=== PATIENT | female | born 1995 | race Hispanic/Latino ===

== ENCOUNTER 2018-04-22 13:32 | Emergency (ER) | payer SELFPAY ==
--- NOTE | 2018-04-22 15:00 | RAD REPORT ---
EXAM DESCRIPTION: RAD - Chest Pa And Lat (2 Views) - 04/22/2018 2:55 pm CLINICAL HISTORY: COUGH Chest pain. COMPARISON: No comparisons FINDINGS: The lungs are clear. The heart is normal in size. No displaced fractures. IMPRESSION: No acute or concerning finding suspected.
--- NOTE | 2018-04-22 15:21 | ER ---
Nurse's Notes [facility] Name: Donal Spring Age: 22 yrs Sex: Female : 1995 Arrival Date: 04/22/2018 Time: 13:36 Bed 27 Private MD: None, None Diagnosis: Acute bronchitis Presentation: 04/22 13:38 Presenting complaint: Patient states: "I just have a really bad cough that has been ss going on for three weeks now and it just hasn't stopped." Denies fever. Pt also c/o sore throat that is worse when swallowing. Transition of care: patient was not received from another setting of care. Onset of symptoms was March 2018. Risk Assessment: Do you want to hurt yourself or someone else? Patient reports no desire to harm self or others. Initial Sepsis Screen: Does the patient meet any 2 criteria? No. Patient's initial sepsis screen is negative. Does the patient have a suspected source of infection? No. Patient's initial sepsis screen is negative. Care prior to arrival: None. 13:38 Method Of Arrival: Ambulatory ss 13:38 Acuity: MAXIMILIANO 4 ss Triage Assessment: 14:00 General: Appears in no apparent distress. comfortable, Behavior is calm, cooperative, kr2 appropriate for age. 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 - Social history:: Smoking status: Patient uses tobacco products, smokes one-half pack cigarettes per day. - Ebola Screening: : Patient denies exposure to infectious person Patient denies travel to an Ebola-affected area in the 21 days before illness onset. Screenin:00 Abuse screen: Denies threats or abuse. Denies injuries from another. Nutritional kr2 screening: No deficits noted. Tuberculosis screening: No symptoms or risk factors identified. Fall Risk None identified. Assessment: 14:00 General: Appears in no apparent distress. comfortable, well groomed, well developed, kr2 well nourished, Behavior is calm, cooperative, appropriate for age. Pain: Complains of pain in throat Pain does not radiate. Pain currently is 9 out of 10 on a pain scale. Quality of pain is described as tender, Is intermittent, Aggravated by eating, drinking. Neuro: Level of Consciousness is awake, alert, obeys commands, Oriented to person, place, time, situation, Appropriate for age. Cardiovascular: Capillary refill < 3 seconds in bilateral fingers Patient's skin is warm and dry. Respiratory: Reports cough that is persistent Airway is patent Respiratory effort is even, unlabored, Respiratory pattern is regular, symmetrical, Breath sounds are clear bilaterally. GI: Abdomen is flat, non-distended, Bowel sounds present X 4 quads. Patient currently denies nausea, vomiting. EENT: Nares are clear bilaterally Oral mucosa is moist. Throat is pink. Derm: Skin is intact, is healthy with good turgor, Skin is pink, warm \\T\\ dry. Musculoskeletal: Circulation, motion, and sensation intact. 15:00 Reassessment: Patient appears in no apparent distress at this time. Patient and/or kr2 family updated on plan of care and expected duration. Pain level reassessed. Patient is alert, oriented x 3, equal unlabored respirations, skin warm/dry/pink. Vital Signs: 13:40 BP 138 / 96; Pulse 87; Resp 15; Temp 97.5(TE); Pulse Ox 100% on R/A; Weight 53.07 kg; ss Height 5 ft. 2 in. (157.48 cm); Pain 9/10; 15:00 BP 124 / 80; Pulse 80; Resp 16; Pulse Ox 100% ; kr2 13:40 Body Mass Index 21.40 (53.07 kg, 157.48 cm) ED Course: 13:36 Patient arrived in ED. ag5 13:37 None, None is Private Physician. ag5 13:39 Triage completed. ss 13:40 Arm band placed on right wrist. ss 13:54 Vijay Wynn MD is Attending Physician. gs 13:55 Patient has correct armband on for positive identification. Bed in low position. Call kr2 light in reach. Side rails up X 1. Adult w/ patient. Pulse ox on. NIBP on. Door closed. Warm blanket given. Head of bed elevated. 14:40 Patient moved to radiology via wheelchair. [facility] 14:54 X-ray completed. Patient tolerated procedure well. Patient moved back from radiology. mh1 14:56 XRAY Chest Pa And Lat (2 Views) In Process Unspecified. EDMS 15:30 No provider procedures requiring assistance completed. Patient did not have IV access kr2 during this emergency room visit. 15:32 Lyn Greer, RN is Primary Nurse. kr2 Administered Medications: No medications were administered Outcome: 15:20 Discharge ordered by . 15:30 Discharged to home ambulatory, with family. kr2 15:30 Condition: good 15:30 Discharge instructions given to patient, family, Instructed on discharge instructions, follow up and referral plans. medication usage, Demonstrated understanding of instructions, follow-up care, medications, Prescriptions given X 2. 15:32 Patient left the ED. kr2 Signatures: Dispatcher [employer] EDMS Dianna Chin 1 Jessie Álvarez RN RN Vijay Wynn MD MD Lyn Greer, BARRY RN kr2 Agatha Wheeler ag5 Corrections: (The following items were deleted from the chart) 13:39 13:38 Acuity: MAXIMILIANO 5 [facility] 13:41 13:38 Presenting complaint: Patient states: "I just have a really bad cough that has ss been going on for three weeks now and it just hasn't stopped." Denies fever. 22:15 22:14 LMP N/A - control method kr2 kr2
--- NOTE | 2018-04-22 15:21 | EDPHYS ---
Physician Documentation [facility] Name: Donal Spring Age: 22 yrs Sex: Female : 1995 Arrival Date: 04/22/2018 Time: 13:36 Bed 27 Private MD: None, None ED Physician Vijay Wynn HPI: 04/22 15:19 This 22 yrs old Female presents to ER via Ambulatory with complaints of Cough. gs 15:19 The patient or guardian reports cough, difficulty breathing. Onset: The gs symptoms/episode began/occurred 3 week(s) ago. Severity of symptoms: At their worst the symptoms were moderate, in the emergency department the symptoms have improved, moderately. Modifying factors: The symptoms are alleviated by nothing, the symptoms are aggravated by nothing. Associated signs and symptoms: Pertinent negatives: chest pain, fever, sore throat, vomiting. The patient has experienced similar episodes in the past, a few times. The patient has not recently seen a physician. 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 - Social history:: Smoking status: Patient uses tobacco products, smokes one-half pack cigarettes per day. - Ebola Screening: : Patient denies exposure to infectious person Patient denies travel to an Ebola-affected area in the 21 days before illness onset. ROS: 15:19 All other systems are negative. gs Exam: 15:19 Head/Face: Normocephalic, atraumatic. Eyes: Pupils equal round and reactive to light, gs extra-ocular motions intact. Lids and lashes normal. Conjunctiva and sclera are non-icteric and not injected. Cornea within normal limits. Periorbital areas with no swelling, redness, or edema. ENT: Nares patent. No nasal discharge, no septal abnormalities noted. Tympanic membranes are normal and external auditory canals are clear. Oropharynx with no redness, swelling, or masses, exudates, or evidence of obstruction, uvula midline. Mucous membranes moist. Neck: Trachea midline, no thyromegaly or masses palpated, and no cervical lymphadenopathy. Supple, full range of motion without nuchal rigidity, or vertebral point tenderness. No Meningismus. Chest/axilla: Normal chest wall appearance and motion. Nontender with no deformity. No lesions are appreciated. Cardiovascular: Regular rate and rhythm with a normal S1 and S2. No gallops, murmurs, or rubs. Normal PMI, no JVD. No pulse deficits. Respiratory: Lungs have equal breath sounds bilaterally, clear to auscultation and percussion. No rales, rhonchi or wheezes noted. No increased work of breathing, no retractions or nasal flaring. Abdomen/GI: Soft, non-tender, with normal bowel sounds. No distension or tympany. No guarding or rebound. No evidence of tenderness throughout. Back: No spinal tenderness. No costovertebral tenderness. Full range of motion. Skin: Warm, dry with normal turgor. Normal color with no rashes, no lesions, and no evidence of cellulitis. MS/ Extremity: Pulses equal, no cyanosis. Neurovascular intact. Full, normal range of motion. Neuro: Awake and alert, GCS 15, oriented to person, place, time, and situation. Cranial nerves II-XII grossly intact. Motor strength 5/5 in all extremities. Sensory grossly intact. Cerebellar exam normal. Normal gait. 15:19 Constitutional: The patient appears alert, awake. Vital Signs: 13:40 BP 138 / 96; Pulse 87; Resp 15; Temp 97.5(TE); Pulse Ox 100% on R/A; Weight 53.07 kg; ss Height 5 ft. 2 in. (157.48 cm); Pain 9/10; 15:00 BP 124 / 80; Pulse 80; Resp 16; Pulse Ox 100% ; kr2 13:40 Body Mass Index 21.40 (53.07 kg, 157.48 cm) ss MDM: 14:09 Patient medically screened. gs 15:19 Differential Diagnosis: Bronchitis Upper Respiratory Infection Pneumonia. Data gs reviewed: vital signs, nurses notes. Response to treatment: the patient's symptoms have markedly improved after treatment, and as a result, I will discharge patient. 15:21 Counseling: I had a detailed discussion with the patient and/or guardian regarding: the gs historical points, exam findings, and any diagnostic results supporting the discharge/admit diagnosis, the presence of at least one elevated blood pressure reading (>120/80) during this emergency department visit, radiology results. Special discussion: I have referred the patient to see his PCP for further evaluation of high blood pressure. 04/22 14:09 Order name: XRAY Chest Pa And Lat (2 Views); Complete Time: 15:19 Administered Medications: No medications were administered Disposition: 04/22/18 15:20 Discharged to Home. Impression: Acute bronchitis. - Condition is Stable. - Discharge Instructions: Acute Bronchitis, Adult, Managing Your Hypertension. - Prescriptions for Zyrtec 10 mg Oral Tablet - take 1 tablet by ORAL route once daily As needed; 20 tablet. Albuterol Sulfate 90 mcg/actuation - inhale 1-2 puff by INHALATION route every 4-6 hours; 1 Inhaler. - Medication Reconciliation Form, Thank You Letter, Antibiotic Education, Prescription Opioid Use form. - Follow up: Private Physician; When: 2 - 3 days; Reason: Re-evaluation by your physician. Signatures: Dispatcher [employer] EDWV Jessie Álvarez RN RN ss Vijay Wynn MD MD Lyn Greer RN RN kr2 Corrections: (The following items were deleted from the chart) 15:32 15:20 04/22/2018 15:20 Discharged to Home. Impression: Acute bronchitis. Condition is kr2 Stable. Forms are Medication Reconciliation Form, Thank You Letter, Antibiotic Education, Prescription Opioid Use. Follow up: Private Physician; When: 2 - 3 days; Reason: Re-evaluation by your physician.
== END 2018-04-22 15:32 | disposition home or self-care (01) ==
LOC: ER 13:32
DX: J20.9 Acute bronchitis, unspecified (principal); F17.210 Nicotine dependence, cigarettes, uncomplicated
CPT/HCPCS: 71046; 99283

== ENCOUNTER 2018-05-10 09:29 | Emergency (ER) | payer SELFPAY ==
[2018-05-10] MEDS ORDERED: NA CHLORIDE 0.9% 1,000 ML ONE (10:17)
[2018-05-10] MEDS ORDERED: DIAZEPAM 10 MG/2 ML INJ SYRINGE ONE (10:18)
[2018-05-10] MEDS ORDERED: NITROFURAN MACRO 100 MG CAP PO ONE (10:21)
[2018-05-10 10:35] LABS: Urine Bacteria LOADED /HPF (<20); Urine RBC <5 /HPF (NONE SEEN)
[2018-05-10 10:36] LABS: Urine Amorphous Sediment 2+ /HPF (NONE SEEN); Urine Culture Reflex Order NOT NEEDED
[2018-05-10 10:37] LABS: Urine Blood TRACE (NEG); Urine Glucose NEGATIVE (NEG); Urine Protein 2+ (NEG); Urine pH 6.5 (5.0-7.0)
--- NOTE | 2018-05-10 11:15 | EDPHYS ---
Physician Documentation [facility] Name: Donal Spring Age: 22 yrs Sex: Female : 1995 Arrival Date: 05/10/2018 Time: 09:32 Bed 20 Private MD: None, None ED Physician Adarsh Sandra HPI: 05/10 10:12 This 22 yrs old Female presents to ER via Ambulatory with complaints of lack rn of sleep,hallucinations. 10:12 REports took Adderall 2 days ago because was making a [address], took 2 tablets, rn reports not able to sleep since then, hearing voices today, no psych history, no headache/neck pain/vomiting/diarrhea, no other drug use other than marijuana, also heavy drinker, binged recently in [place], but no drink for 2 weeks before that. . Onset: The symptoms/episode began/occurred 2 day(s) ago. Severity of symptoms: At their worst the symptoms were moderate in the emergency department the symptoms are unchanged. The patient has not experienced similar symptoms in the past. The patient has not recently seen a physician. 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 - Social history:: Smoking status: Patient/guardian denies using tobacco. - Ebola Screening: : No symptoms or risks identified at this time. - Family history:: not pertinent. - Hospitalizations: : No recent hospitalization is reported. ROS: 10:12 Constitutional: Negative for fever, chills, and weight loss, Eyes: Negative for injury, rn pain, redness, and discharge, Neck: Negative for injury, pain, and swelling, Cardiovascular: Negative for chest pain, palpitations, and edema, Respiratory: Negative for shortness of breath, cough, wheezing, and pleuritic chest pain, Abdomen/GI: Negative for abdominal pain, nausea, vomiting, diarrhea, and constipation, MS/Extremity: Negative for injury and deformity, Skin: Negative for injury, rash, and discoloration, Neuro: Negative for headache, weakness, numbness, tingling, and seizure, Psych: Negative for depression, anxiety, suicide ideation, homicidal ideation Exam: 10:12 Constitutional: This is a well developed, well nourished patient who is awake, alert, rn and in no acute distress. Head/Face: Normocephalic, atraumatic. Eyes: Pupils equal round and reactive to light, extra-ocular motions intact. Lids and lashes normal. Conjunctiva and sclera are non-icteric and not injected. Cornea within normal limits. Periorbital areas with no swelling, redness, or edema. ENT: dry MM Neck: Trachea midline, no thyromegaly or masses palpated, and no cervical lymphadenopathy. Supple, full range of motion without nuchal rigidity, or vertebral point tenderness. No Meningismus. Cardiovascular: tachycardic, regular, No pulse deficits. Respiratory: Lungs have equal breath sounds bilaterally, clear to auscultation, No increased work of breathing, no retractions or nasal flaring. Abdomen/GI: soft, non-tender Skin: Warm, dry with normal turgor. Normal color with no rashes, no lesions, and no evidence of cellulitis. MS/ Extremity: Pulses equal, no cyanosis. Neurovascular intact. Full, normal range of motion. Equal circumference. Neuro: Awake and alert, GCS 15, oriented to person, place, time, and situation. Cranial nerves II-XII grossly intact. Motor strength 5/5 in all extremities. Sensory grossly intact. Cerebellar exam normal. Vital Signs: 09:44 BP 136 / 99; Pulse 83; Resp 16; Temp 100.1(O); Pulse Ox 100% on R/A; Pain 0/10; hb 11:32 BP 103 / 80; Pulse 86; Resp 16; Pulse Ox 98% on R/A; mh5 MDM: 09:43 Patient medically screened. rn 11:13 Differential Diagnosis stimulant use, UTI, dehydration. Data reviewed: vital signs, rn nurses notes, lab test result(s), and as a result, I will discharge patient. Counseling: I had a detailed discussion with the patient and/or guardian regarding: the historical points, exam findings, and any diagnostic results supporting the discharge/admit diagnosis, lab results, the need for outpatient follow up, to return to the emergency department if symptoms worsen or persist or if there are any questions or concerns that arise at home. Response to treatment: the patient's symptoms have markedly improved after treatment, and as a result, I will discharge patient. Special discussion: I discussed with the patient/guardian in detail that at this point there is no indication for admission to the hospital. It is understood, however, that if the symptoms persist or worsen the patient needs to return immediately for re-evaluation. 05/10 09:35 Order name: Urine Culture snw 05/10 09:35 Order name: Urine Microscopic Only; Complete Time: 10:43 snw 05/10 10:08 Order name: Urine Dipstick--Ancillary (enter results); Complete Time: 10:43 lt1 05/10 10:08 Order name: Urine --Ancillary (enter results); Complete Time: 10:43 lt1 05/10 09:35 Order name: Urine Test (obtain specimen); Complete Time: 10:23 snw 05/10 09:35 Order name: Urine Dipstick-Ancillary (obtain specimen); Complete Time: 10:23 [facility] 05/10 09:56 Order name: IV Start; Complete Time: 10:23 rn Administered Medications: 10:15 Drug: NS 0.9% 1000 ml Route: IV; Rate: 1000 ml; Site: right antecubital; jl7 11:15 Follow up: IV Status: Completed infusion jl7 10:18 Drug: Valium 5 mg Route: IVP; Site: right antecubital; jl7 10:30 Follow up: Response: No adverse reaction; Marked relief of symptoms jl7 10:26 Drug: Macrobid 100 mg Route: PO; jl7 11:00 Follow up: Response: No adverse reaction jl7 11:13 CANCELLED (Duplicate Order): Valium 5 mg IVP once rn 11:25 Drug: Valium 5 mg Route: PO; jl7 11:53 Follow up: Response: Medication administered at discharge. jl7 Disposition: 05/10/18 11:14 Discharged to Home. Impression: Dehydration, Urinary tract infection, site not specified, Adverse effect of unspecified psychostimulants. - Condition is Stable. - Discharge Instructions: Dehydration, Adult, Urinary Tract Infection, Adult. - Prescriptions for Macrobid 100 mg Oral Capsule - take 1 capsule by ORAL route every 12 hours for 10 days; 20 capsule. - Medication Reconciliation Form, Thank You Letter, Antibiotic Education, Prescription Opioid Use form. - Follow up: Private Physician; When: As needed; Reason: Recheck today's complaints, Re-evaluation by your physician. - Problem is new. - Symptoms have improved. Signatures: Dispatcher [employer] [facility] Bouchra Frank, MANAGER CRISIS-C MANAGER CRISIS-Csnw Adarsh Sandra MD MD rn Baxter, Heather, RN RN hb Leal, Jahala, RN RN jl7 Corrections: (The following items were deleted from the chart) 10:00 09:36 URINE DRUG SCREEN+CHEM UR.LAB.BRZ ordered. [facility] 10:18 10:12 Constitutional: Negative for fever, chills, and weight loss, Eyes: Negative for rn injury, pain, redness, and discharge, Neck: Negative for injury, pain, and swelling, Cardiovascular: Negative for chest pain, palpitations, and edema, Respiratory: Negative for shortness of breath, cough, wheezing, and pleuritic chest pain, Abdomen/GI: Negative for abdominal pain, nausea, vomiting, diarrhea, and constipation, MS/Extremity: Negative for injury and deformity, Skin: Negative for injury, rash, and discoloration, Neuro: Negative for headache, weakness, numbness, tingling, and seizure, rn 11:13 11:13 Valium 5 mg IVP once ordered. rn rn 11:55 11:14 05/10/2018 11:14 Discharged to Home. Impression: Dehydration; Urinary tract jl7 infection, site not specified; Adverse effect of unspecified psychostimulants. Condition is Stable. Forms are Medication Reconciliation Form, Thank You Letter, Antibiotic Education, Prescription Opioid Use. Follow up: Private Physician; When: As needed; Reason: Recheck today's complaints, Re-evaluation by your physician. Problem is new. Symptoms have improved. rn
--- NOTE | 2018-05-10 11:15 | ER ---
Nurse's Notes [facility] Name: Donal Spring Age: 22 yrs Sex: Female : 1995 Arrival Date: 05/10/2018 Time: 09:32 Bed 20 Private MD: None, None Diagnosis: Dehydration;Urinary tract infection, site not specified;Adverse effect of unspecified psychostimulants Presentation: 05/10 09:43 Presenting complaint: Patient states: "I took Adderall Lola night so I could drive hb from [place], and I have not been able to sleep since then." Sisters at bedside report pt has been hallucinating and arguing with people who are not present. Transition of care: patient was not received from another setting of care. Onset of symptoms was May 10, 2018. Risk Assessment: Do you want to hurt yourself or someone else? Patient reports no desire to harm self or others. Initial Sepsis Screen: Does the patient meet any 2 criteria? No. Patient's initial sepsis screen is negative. Does the patient have a suspected source of infection? No. Patient's initial sepsis screen is negative. Care prior to arrival: None. 09:43 Method Of Arrival: Ambulatory hb 09:43 Acuity: MAXIMILIANO 3 hb [employer] OP: 09:44 LMP 04/24/2018 hb Historical: - Allergies: 09:45 No Known Allergies; hb - Home Meds: 09:45 Adderall XR Oral [Active]; hb - PMHx: 09:45 None; hb - PSHx: 09:45 None; hb - Immunization history:: Adult Immunizations up to date. - Social history:: Smoking status: Patient/guardian denies using tobacco. - Ebola Screening: : No symptoms or risks identified at this time. - Family history:: not pertinent. - Hospitalizations: : No recent hospitalization is reported. Screenin:45 Abuse screen: Denies threats or abuse. Denies injuries from another. Nutritional hb screening: No deficits noted. Tuberculosis screening: No symptoms or risk factors identified. Fall Risk None identified. Assessment: 10:00 General: Appears in no apparent distress. uncomfortable, Behavior is calm, cooperative, jl7 appropriate for age. Pain: Denies pain. Neuro: Level of Consciousness is awake, alert, obeys commands, Oriented to person, place, time, situation. Cardiovascular: Patient's skin is warm and dry. Respiratory: Airway is patent Respiratory effort is even, unlabored, Respiratory pattern is regular, symmetrical. GI: No signs and/or symptoms were reported involving the gastrointestinal system. : Denies burning with urination, discharge, pain urinary frequency. EENT: No signs and/or symptoms were reported regarding the EENT system. Derm: Skin is pink, warm \\T\\ dry. Musculoskeletal: No signs and/or symptoms reported regarding the musculoskeletal system. 11:00 Reassessment: Patient and/or family updated on plan of care and expected duration. Pain jl7 level reassessed. Patient is alert, oriented x 3, equal unlabored respirations, skin warm/dry/pink. Patient states feeling better. Patient states symptoms have improved. Vital Signs: 09:44 BP 136 / 99; Pulse 83; Resp 16; Temp 100.1(O); Pulse Ox 100% on R/A; Pain 0/10; hb 11:32 BP 103 / 80; Pulse 86; Resp 16; Pulse Ox 98% on R/A; mh5 ED Course: 09:32 Patient arrived in ED. mr 09:32 None, None is Private Physician. mr 09:43 Adarsh Sandra MD is Attending Physician. rn 09:44 Triage completed. hb 09:44 Arm band placed on right wrist. hb 09:45 Megan Wise, BARRY is Primary Nurse. jl7 10:00 Patient has correct armband on for positive identification. Bed in low position. Call jl7 light in reach. Side rails up X 1. Pulse ox on. NIBP on. 10:15 Inserted saline lock: 20 gauge in right antecubital area, using aseptic technique. jl7 11:35 No provider procedures requiring assistance completed. IV discontinued, intact, jl7 bleeding controlled, No redness/swelling at site. Pressure dressing applied. Administered Medications: 10:15 Drug: NS 0.9% 1000 ml Route: IV; Rate: 1000 ml; Site: right antecubital; jl7 11:15 Follow up: IV Status: Completed infusion jl7 10:18 Drug: Valium 5 mg Route: IVP; Site: right antecubital; jl7 10:30 Follow up: Response: No adverse reaction; Marked relief of symptoms jl7 10:26 Drug: Macrobid 100 mg Route: PO; jl7 11:00 Follow up: Response: No adverse reaction jl7 11:13 CANCELLED (Duplicate Order): Valium 5 mg IVP once rn 11:25 Drug: Valium 5 mg Route: PO; jl7 11:53 Follow up: Response: Medication administered at discharge. jl7 Outcome: 11:14 Discharge ordered by . rn 11:35 Discharged to home ambulatory. jl7 11:35 Condition: stable 11:35 Discharge instructions given to patient, family, Instructed on discharge instructions, follow up and referral plans. medication usage, Demonstrated understanding of instructions, follow-up care, medications, Prescriptions given X 1. 11:55 Patient left the ED. jl7 Addendum: 05/13/2018 08:19 Addendum: Culture Results: Positive urine culture. No further action required. Bacteria s s sensitive to prescribed antibiotic. Signatures: Fatimah Pascual Roman, MD MD rn Smirch, Shelby, RN RN ss Baxter, Heather, RN RN hb Martinez, Maria [facility] Megan Wise RN RN jl7
[2018-05-10] MEDS ORDERED: DIAZEPAM 5 MG TABLET ONE (11:31)
== END 2018-05-10 11:55 | disposition home or self-care (01) ==
LOC: ER 09:29
DX: E86.0 Dehydration (principal); N39.0 Urinary tract infection, site not specified; T43.625A Adverse effect of amphetamines, initial encounter
CPT/HCPCS: 81003; 81015; 81025; 87077; 87086; 87088; 87186; 96361; 96374; 99284; J3360; J7030

== ENCOUNTER 2019-01-03 16:56 | Emergency (ER) | payer SELFPAY ==
[2019-01-03] MEDS ORDERED: HYDROCODONE/APAP 5/325 MG TAB ONE (17:15)
--- NOTE | 2019-01-03 18:39 | ER ---
Nurse's Notes [facility] Name: Donal Spring Age: 23 yrs Sex: Female : 1995 Arrival Date: 01/03/2019 Time: 16:58 Bed Treatment Private MD: Diagnosis: Contusion of left ring finger with damage to nail-subungual hematoma Presentation: 01/03 17:10 Presenting complaint: Patient states: I slammed my left 4th finger in the car door last la1 night. Transition of care: patient was not received from another setting of care. Onset of symptoms was January 03, 2019. Risk Assessment: Do you want to hurt yourself or someone else? Patient reports no desire to harm self or others. Initial Sepsis Screen: Does the patient meet any 2 criteria? No. Patient's initial sepsis screen is negative. Does the patient have a suspected source of infection? No. Patient's initial sepsis screen is negative. Care prior to arrival: None. 17:10 Method Of Arrival: Ambulatory la1 17:10 Acuity: MAXIMILIANO 4 la1 Historical: - Allergies: 17:11 No Known Allergies; la1 - PMHx: 17:11 None; la1 - Immunization history:: Adult Immunizations up to date. - Social history:: Smoking status: Patient/guardian denies using tobacco. - Ebola Screening: : No symptoms or risks identified at this time. Screenin:55 Abuse screen: Denies threats or abuse. Nutritional screening: No deficits noted. la1 Tuberculosis screening: No symptoms or risk factors identified. Fall Risk None identified. Assessment: 18:54 General: Appears in no apparent distress. Behavior is calm, cooperative. Pain: la1 Complains of pain in dorsal aspect of distal phalanx of left ring finger. Neuro: Level of Consciousness is awake, alert, obeys commands. Cardiovascular: Patient's skin is warm and dry. Respiratory: Airway is patent Respiratory effort is even, unlabored, Respiratory pattern is regular, symmetrical. Musculoskeletal: Circulation, motion, and sensation intact. Large subungual hematoma to left fourth digit. Vital Signs: 17:11 BP 130 / 95; Pulse 98; Resp 16; Temp 97.5; Pulse Ox 98% on R/A; Weight 58.06 kg; Height la1 5 ft. 2 in. (157.48 cm); 17:11 Body Mass Index 23.41 (58.06 kg, 157.48 cm) la1 ED Course: 16:58 Patient arrived in ED. rg4 17:11 Triage completed. la1 17:11 Arm band placed on left wrist. la1 17:17 Mendy Ruvalcaba F[facility]-C [facility]. kb 17:17 Adarsh Sandra MD is Attending Physician. kb 18:49 Hand Left 3 View XRAY In Process Unspecified. EDMS 18:54 Morgan Medellin, RN is Primary Nurse. la1 18:55 Patient has correct armband on for positive identification. la1 18:55 No provider procedures requiring assistance completed. Patient did not have IV access la1 during this emergency room visit. Administered Medications: 17:16 Drug: [place] 5 mg-325 mg 1 tabs {Note: RASS=2.} Route: PO; la1 18:55 Follow up: Response: RASS: Restless (+1) la1 Outcome: 18:38 Discharge ordered by MD. kb 18:55 Discharged to home ambulatory. la1 18:55 Condition: stable 18:55 Discharge instructions given to Pt left without signing 18:55 Patient left the ED. la1 Signatures: Dispatcher [employer] EDMS Mendy Ruvalcaba FNP-C FNP-Morgan Mercedes, RN RN cj1 Cassandra Momin rg4
--- NOTE | 2019-01-03 18:39 | EDPHYS ---
Physician Documentation [facility] Name: Donal Spring Age: 23 yrs Sex: Female : 1995 Arrival Date: 01/03/2019 Time: 16:58 Bed Treatment Private MD: ED Physician Adarsh Sandra HPI: 01/03 18:35 This 23 yrs old Female presents to ER via Ambulatory with complaints of Finger kb Injury. 18:35 The patient or guardian reports a contusion, injury, pain, swelling, tenderness, kb subungual hematoma. The complaints affect the dorsal aspect of distal phalanx of left ring finger. Context: The problem was sustained outdoors, resulted from a crush injury, by a car door. Onset: The symptoms/episode began/occurred last night. Modifying factors: The symptoms are alleviated by nothing, the symptoms are aggravated by movement. Associated signs and symptoms: The patient has no apparent associated signs or symptoms. Severity of symptoms: At their worst the symptoms were moderate, in the emergency department the symptoms are unchanged. The patient has not experienced similar symptoms in the past. The patient has not recently seen a physician. Historical: - Allergies: 17:11 No Known Allergies; la1 - PMHx: 17:11 None; la1 - Immunization history:: Adult Immunizations up to date. - Social history:: Smoking status: Patient/guardian denies using tobacco. - Ebola Screening: : No symptoms or risks identified at this time. ROS: 18:36 Constitutional: Negative for fever, chills, and weight loss, Cardiovascular: Negative kb for chest pain, palpitations, and edema, Respiratory: Negative for shortness of breath, cough, wheezing, and pleuritic chest pain, Abdomen/GI: Negative for abdominal pain, nausea, vomiting, diarrhea, and constipation, Skin: Negative for injury, rash, and discoloration, Neuro: Negative for headache, weakness, numbness, tingling, and seizure. 18:36 MS/extremity: Positive for injury or acute deformity, contusion, ecchymosis, pain, swelling, tenderness, of the dorsal aspect of distal phalanx of left ring finger. Exam: 18:36 Constitutional: This is a well developed, well nourished patient who is awake, alert, kb and in no acute distress. Head/Face: Normocephalic, atraumatic. ENT: Nares patent. No nasal discharge, no septal abnormalities noted. Tympanic membranes are normal and external auditory canals are clear. Oropharynx with no redness, swelling, or masses, exudates, or evidence of obstruction, uvula midline. Mucous membranes moist. Neck: Trachea midline, no thyromegaly or masses palpated, and no cervical lymphadenopathy. Supple, full range of motion without nuchal rigidity, or vertebral point tenderness. No Meningismus. Chest/axilla: Normal chest wall appearance and motion. Nontender with no deformity. No lesions are appreciated. Cardiovascular: Regular rate and rhythm with a normal S1 and S2. No gallops, murmurs, or rubs. Normal PMI, no JVD. No pulse deficits. Respiratory: Lungs have equal breath sounds bilaterally, clear to auscultation and percussion. No rales, rhonchi or wheezes noted. No increased work of breathing, no retractions or nasal flaring. Abdomen/GI: Soft, non-tender, with normal bowel sounds. No distension or tympany. No guarding or rebound. No evidence of tenderness throughout. Back: No spinal tenderness. No costovertebral tenderness. Full range of motion. MS/ Extremity: Pulses equal, no cyanosis. Neurovascular intact. Full, normal range of motion. Neuro: Awake and alert, GCS 15, oriented to person, place, time, and situation. Cranial nerves II-XII grossly intact. Motor strength 5/5 in all extremities. Sensory grossly intact. Cerebellar exam normal. Normal gait. 18:36 Musculoskeletal/extremity: Extremities: grossly normal except: noted in the dorsal aspect of distal phalanx of left ring finger: contusion, ecchymosis, pain, swelling, tenderness, ROM: intact in all extremities, Circulation is intact in all extremities. Sensation intact. Nails: Subungual hematoma, of the dorsal aspect of distal phalanx of left ring finger. Vital Signs: 17:11 BP 130 / 95; Pulse 98; Resp 16; Temp 97.5; Pulse Ox 98% on R/A; Weight 58.06 kg; Height la1 5 ft. 2 in. (157.48 cm); 17:11 Body Mass Index 23.41 (58.06 kg, 157.48 cm) la1 MDM: 17:17 Patient medically screened. kb 18:33 Data reviewed: vital signs, nurses notes. Data interpreted: Pulse oximetry: on room air kb is 98 %. Interpretation: normal. Test interpretation: by ED physician or midlevel provider: plain radiologic studies, no fracture. Counseling: I had a detailed discussion with the patient and/or guardian regarding: the historical points, exam findings, and any diagnostic results supporting the discharge/admit diagnosis, radiology results, the need for outpatient follow up, a family practitioner, to return to the emergency department if symptoms worsen or persist or if there are any questions or concerns that arise at home. 18:34 ED course: 18G needle used to make hole in nail to drain subungual hematoma. kb 01/03 17:12 Order name: Hand Left 3 View XRAY la1 Administered Medications: 17:16 Drug: [place] 5 mg-325 mg 1 tabs {Note: RASS=2.} Route: PO; la1 18:55 Follow up: Response: RASS: Restless (+1) la1 Disposition: 18:59 Co-signature as Attending Physician, Adarsh Sandra MD. rn Disposition: 01/03/19 18:38 Discharged to Home. Impression: Contusion of left ring finger with damage to nail - subungual hematoma. - Condition is Stable. - Discharge Instructions: Contusion, [id number], Subungual Hematoma, [id number]. - Medication Reconciliation Form, Thank You Letter, Antibiotic Education, Prescription Opioid Use form. - Follow up: Emergency Department; When: As needed; Reason: Worsening of condition. Follow up: Private Physician; When: 2 - 3 days; Reason: Recheck today's complaints, Continuance of care, Re-evaluation by your physician. Signatures: Dispatcher [employer] EDMS Mendy Ruvalcaba, SENIOR PLANNING ANALYST-C SENIOR PLANNING ANALYST-Ckb Adarsh Sandra MD MD rn Attema, Lee, RN RN la1 Corrections: (The following items were deleted from the chart) 18:37 18:36 Musculoskeletal/extremity: Extremities: grossly normal except: noted in the kb dorsal aspect of distal phalanx of left ring finger: contusion, ecchymosis, pain, swelling, tenderness, Nails: Subungual hematoma, of the dorsal aspect of distal phalanx of left ring finger, kb 18:55 18:38 01/03/2019 18:38 Discharged to Home. Impression: Contusion of left ring finger la1 with damage to nail - subungual hematoma. Condition is Stable. Forms are Medication Reconciliation Form, Thank You Letter, Antibiotic Education, Prescription Opioid Use. Follow up: Emergency Department; When: As needed; Reason: Worsening of condition. Follow up: Private Physician; When: 2 - 3 days; Reason: Recheck today's complaints, Continuance of care, Re-evaluation by your physician. kb
--- NOTE | 2019-01-03 19:01 | RAD REPORT ---
EXAM DESCRIPTION: RAD - Hand Left 3 View - 01/03/2019 6:48 pm CLINICAL HISTORY: PAIN COMPARISON: <Comparisons> FINDINGS: Soft tissue swelling is seen involving the fourth finger. No acute fractures or dislocatio n seen.
== END 2019-01-03 18:55 | disposition home or self-care (01) ==
LOC: ER 16:56
PROC: 0H9QXZZ Drainage of Finger Nail, External Approach (ICD-10-PCS; principal; 2019-01-03)
DX: S60.142A Contusion of left ring finger with damage to nail, initial encounter (principal); W23.1XXA Caught, crushed, jammed, or pinched between stationary objects, initial encounter; Y93.9 Activity, unspecified; Y92.9 Unspecified place or not applicable
CPT/HCPCS: 99283

== ENCOUNTER 2019-01-06 00:02 | Emergency (ER) | payer SELFPAY ==
[2019-01-06] MEDS ORDERED: CLINDAMYCIN HCL 150 MG CAP ONE (00:37)
[2019-01-06] MEDS ORDERED: KETOROLAC 30 MG/ML INJ ONE (00:38)
--- NOTE | 2019-01-06 01:12 | ER ---
Nurse's Notes [facility] Name: Donal Spring Age: 23 yrs Sex: Female : 1995 Arrival Date: 01/06/2019 Time: 00:06 Bed 14 Private MD: Diagnosis: Cellulitis of left finger Presentation: 01/06 00:15 Presenting complaint: Patient states: "Hit my left ring finger (left 4th digit) in a cc3 car door 2 days ago, I was seen here in the ER that same day and they drained this finger. Today it's more painful and looks worse". Transition of care: patient was not received from another setting of care. Onset of symptoms was January 03, 2019. Risk Assessment: Do you want to hurt yourself or someone else? Patient reports no desire to harm self or others. Initial Sepsis Screen: Does the patient meet any 2 criteria? HR > 90 bpm. Does the patient have a suspected source of infection? Yes: Skin breakdown/wound. Care prior to arrival: None. 00:15 Method Of Arrival: Ambulatory cc3 00:15 Acuity: MAXIMILIANO 3 cc3 Triage Assessment: 00:15 General: Appears in no apparent distress. uncomfortable, Behavior is calm, cooperative, cc3 appropriate for age. Injury Description: Bruise sustained to left 4th finger is black. 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 - Social history:: Smoking status: Patient/guardian denies using tobacco, never smoked. - Ebola Screening: : No symptoms or risks identified at this time. Screenin:30 Abuse screen: Denies threats or abuse. Nutritional screening: No deficits noted. ea Tuberculosis screening: No symptoms or risk factors identified. Fall Risk None identified. Assessment: 00:30 General: Appears in no apparent distress. Behavior is calm, cooperative, appropriate ea for age. Pain: Complains of pain in dorsal aspect of distal phalanx of left middle finger. Neuro: Level of Consciousness is awake, alert, obeys commands, Oriented to person, place, time, situation. Cardiovascular: Patient's skin is warm and dry. Respiratory: Airway is patent Respiratory effort is even, unlabored, Respiratory pattern is regular, symmetrical. Musculoskeletal: Reports pain in dorsal aspect of distal phalanx of left middle finger. 01:06 Reassessment: Patient and/or family updated on plan of care and expected duration. Pain ea level reassessed. Patient is alert, oriented x 3, equal unlabored respirations, skin warm/dry/pink. Discharge instruction given to patient, verbalized the understanding of instruction, no s/s of pain or discomfort noted at this time. Vital Signs: 00:15 BP 133 / 95; Pulse 115; Resp 18 S; Temp 98.8(O); Pulse Ox 99% on R/A; Weight 54.43 kg cc3 (R); Height 5 ft. 2 in. (157.48 cm) (R); Pain 9/10; 01:00 BP 120 / 70; Pulse 80; Resp 18; Pulse Ox 98% ; ea 00:15 Body Mass Index 21.95 (54.43 kg, 157.48 cm) cc3 ED Course: 00:06 Patient arrived in ED. ag3 00:10 Matthew De La Fuente MD is Attending Physician. tw4 00:15 Patient has correct armband on for positive identification. Bed in low position. Call ea light in reach. Side rails up X 1. 00:15 Arm band placed on right wrist. Patient placed in an exam room, on a stretcher, on ea pulse oximetry. 00:27 Tootie Quispe is Primary Nurse. cc3 00:34 Triage completed. cc3 01:06 No provider procedures requiring assistance completed. Patient did not have IV access ea during this emergency room visit. Administered Medications: 00:35 Drug: Cleocin 300 mg Route: PO; cc3 01:00 Follow up: Response: No adverse reaction ea 00:40 Drug: TORadol 60 mg Route: IM; Site: right gluteus; cc3 01:00 Follow up: Response: No adverse reaction; Pain is decreased ea Outcome: 00:57 Discharge ordered by . tw4 01:06 Discharged to home ambulatory, with significant other. ea 01:06 Condition: stable 01:06 Discharge instructions given to patient, Instructed on discharge instructions, follow up and referral plans. medication usage, Demonstrated understanding of instructions, follow-up care, medications, Prescriptions given X 3. 01:07 Patient left the ED. shayla Signatures: Maria Luz Bauer, RN RN Matthew Griggs MD MD tw4 Tootie Quispe cc3 Bebeto, Tracey ag3 Corrections: (The following items were deleted from the chart) 01:09 01:08 BP 120 / 70; Pulse 80bpm; Resp 18bpm; Pulse Ox 98%; shayla mcguire
--- NOTE | 2019-01-06 01:13 | EDPHYS ---
Physician Documentation [facility] Name: Donal Spring Age: 23 yrs Sex: Female : 1995 Arrival Date: 01/06/2019 Time: 00:06 Bed 14 Private MD: ED Physician Matthew De La Fuente HPI: 01/06 00:40 This 23 yrs old Female presents to ER via Ambulatory with complaints of Finger tw4 Injury. 00:40 The patient or guardian reports pain. Context: The problem was sustained at home. tw4 Onset: The symptoms/episode began/occurred today. Modifying factors: The symptoms are alleviated by nothing, the symptoms are aggravated by nothing. The patient has not experienced similar symptoms in the past. 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 - Social history:: Smoking status: Patient/guardian denies using tobacco, never smoked. - Ebola Screening: : No symptoms or risks identified at this time. ROS: 00:40 Constitutional: Negative for fever, chills, and weight loss, Cardiovascular: Negative tw4 for chest pain, palpitations, and edema, Respiratory: Negative for shortness of breath, cough, wheezing, and pleuritic chest pain. Exam: 00:57 Constitutional: This is a well developed, well nourished patient who is awake, alert, tw4 and in no acute distress. Head/Face: Normocephalic, atraumatic. Chest/axilla: Normal chest wall appearance and motion. Nontender with no deformity. No lesions are appreciated. Cardiovascular: Regular rate and rhythm with a normal S1 and S2. No gallops, murmurs, or rubs. Normal PMI, no JVD. No pulse deficits. Respiratory: Lungs have equal breath sounds bilaterally, clear to auscultation and percussion. No rales, rhonchi or wheezes noted. No increased work of breathing, no retractions or nasal flaring. Abdomen/GI: Soft, non-tender, with normal bowel sounds. No distension or tympany. No guarding or rebound. No evidence of tenderness throughout. Back: No spinal tenderness. No costovertebral tenderness. Full range of motion. 00:57 Musculoskeletal/extremity: Extremities: noted in the dorsal aspect of distal phalanx of left middle finger: erythema, swelling. Vital Signs: 00:15 BP 133 / 95; Pulse 115; Resp 18 S; Temp 98.8(O); Pulse Ox 99% on R/A; Weight 54.43 kg cc3 (R); Height 5 ft. 2 in. (157.48 cm) (R); Pain 9/10; 01:00 BP 120 / 70; Pulse 80; Resp 18; Pulse Ox 98% ; ea 00:15 Body Mass Index 21.95 (54.43 kg, 157.48 cm) cc3 MDM: 00:10 Patient medically screened. tw4 01:00 Data reviewed: vital signs, nurses notes. Counseling: I had a detailed discussion with tw4 the patient and/or guardian regarding: the historical points, exam findings, and any diagnostic results supporting the discharge/admit diagnosis. Medication response: Toradol partially relieved the patient's pain. Response to treatment: and as a result, I will discharge patient. Special discussion: I discussed with the patient/guardian in detail that at this point there is no indication for admission to the hospital. It is understood, however, that if the symptoms persist or worsen the patient needs to return immediately for re-evaluation. Administered Medications: 00:35 Drug: Cleocin 300 mg Route: PO; cc3 01:00 Follow up: Response: No adverse reaction ea 00:40 Drug: TORadol 60 mg Route: IM; Site: right gluteus; cc3 01:00 Follow up: Response: No adverse reaction; Pain is decreased ea Disposition: 01/06/19 00:57 Discharged to Home. Impression: Cellulitis of left finger. - Condition is Stable. - Discharge Instructions: Cellulitis, Adult, Paronychia. - Prescriptions for Cleocin 300 mg Oral Capsule - take 1 capsule by ORAL route every 6 hours for 10 days; 40 capsule. Ibuprofen 800 mg Oral Tablet - take 1 tablet by ORAL route every 12 hours As needed take with food; 20 tablet. Tylenol- Codeine #3 300-30 mg Oral Tablet - take 2 tablet by ORAL route every 6 hours As needed; 6 tablet. - Medication Reconciliation Form, Thank You Letter, Antibiotic Education, Prescription Opioid Use form. - Follow up: Private Physician; When: Upon discharge from the Emergency Department; Reason: If symptoms return, Recheck today's complaints, Continuance of care. - Problem is an ongoing problem. - Symptoms are unchanged. Signatures: Maria Luz Bauer RN RN ea Wadley, Terrence, MD MD tw4 Tootie Quispe cc3 Corrections: (The following items were deleted from the chart) 01:07 00:57 01/06/2019 00:57 Discharged to Home. Impression: Cellulitis of left finger. ea Condition is Stable. Forms are Medication Reconciliation Form, Thank You Letter, Antibiotic Education, Prescription Opioid Use. Follow up: Private Physician; When: Upon discharge from the Emergency Department; Reason: If symptoms return, Recheck today's complaints, Continuance of care. Problem is an ongoing problem. Symptoms are unchanged. tw4
== END 2019-01-06 01:07 | disposition home or self-care (01) ==
LOC: ER 00:02
DX: L03.012 Cellulitis of left finger (principal)
CPT/HCPCS: 96372; 99283

== ENCOUNTER 2019-10-28 16:20 | Emergency (ER) | payer SELFPAY ==
[2019-10-28 18:44] LABS: Absolute Lymphocytes (CBC) 1.4 K/uL (0.7-4.9); Basophils % 0.6 % (0-1.3); Hematocrit 44.3 % (36.0-45.0); Lymphocytes % 25.6 % (15.3-44.8); MPV 8.3 fL (7.6-11.3)
[2019-10-28 18:59] LABS: Potassium 3.5 mmol/L (3.5-5.1)
[2019-10-28] MEDS ORDERED: ONDANSETRON 4 MG/2 ML VIAL ONE (20:01)
[2019-10-28] MEDS ORDERED: NA CHLORIDE 0.9% 2,000 ML ONE (20:01)
--- OUTSIDE RECORDS SUMMARY | 2019-10-28 20:03 | XMS REPORT | Continuity of Care Document ---
:1995 Author Organization [facility] t Address [facility] [place] [address] [place] [id number] Care Team Providers Name Role Phone Unavailable Unavailable Unavailable Problems This patient has no known problems. Allergies, Adverse Reactions, Alerts This patient has no known allergies or adverse reactions. Medications This patient has no known medications. Procedures This patient has no known procedures. Results This patient has no known results.
[2019-10-28] MEDS ORDERED: PROMETHAZINE INJ 25 MG/ML AMP ONE (20:06)
--- NOTE | 2019-10-28 20:28 | ER ---
Nurse's Notes [facility] Name: Donal Spring Age: 24 yrs Sex: Female : 1995 Arrival Date: 10/28/2019 Time: 16:31 Bed 19 Private MD: Diagnosis: Nausea and vomiting;Volume depletion Presentation: 10/27 16:36 Chief complaint: Patient states: i still have been vomiting and feeling nauseous for 2 tw2 days now, i cant keep anything down, i drink water and gatoriad and i just throw it back up, no abdominal pain really just sore from all the vomiting. Coronavirus screen: Patient denies a cough. Patient denies shortness of breath or difficulty breathing. Patient denies measured and/or subjective temperature greater than 100.4F prior to today's visit. Patient denies travel on a cruise ship or to a country the [facility] currently lists as an affected area. Patient denies contact with known and/or suspected case of COVID-19. Ebola Screen: Patient denies travel to an Ebola-affected area in the 21 days before illness onset. Initial Sepsis Screen: Does the patient meet any 2 criteria? No. Patient's initial sepsis screen is negative. Does the patient have a suspected source of infection? No. Patient's initial sepsis screen is negative. Risk Assessment: Do you want to hurt yourself or someone else? Patient reports no desire to harm self or others. Onset of symptoms. 16:36 Method Of Arrival: Ambulatory tw2 16:36 Acuity: MAXIMILIANO 3 tw2 Triage Assessment: 16:36 General: Appears in no apparent distress. slender, well groomed, Behavior is calm, tw2 cooperative, appropriate for age. Pain: Denies pain. GI: Reports intolerance of fluids, intolerance of food, nausea, vomiting. 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 - Social history:: Smoking status: . Screenin:57 Abuse screen: Denies threats or abuse. Nutritional screening: No deficits noted. tw2 Tuberculosis screening: No symptoms or risk factors identified. Fall Risk None identified. Assessment: 18:12 General: Appears in no apparent distress. comfortable, Behavior is calm, cooperative. ls4 Neuro: No deficits noted. Cardiovascular: No deficits noted. Respiratory: Airway is patent Respiratory effort is even, unlabored, Respiratory pattern is regular. GI: Abdomen is non-distended, Bowel sounds present X 4 quads. 19:00 Reassessment: Patient appears in no apparent distress at this time. Patient and/or ls4 family updated on plan of care and expected duration. Pain level reassessed. Patient is alert, oriented x 3, equal unlabored respirations, skin warm/dry/pink. 20:14 Reassessment: Patient appears in no apparent distress at this time. Patient and/or ls4 family updated on plan of care and expected duration. Pain level reassessed. Patient is alert, oriented x 3, equal unlabored respirations, skin warm/dry/pink. Patient states feeling better. Patient states symptoms have improved. Vital Signs: 16:36 Pulse 89; Resp 17; Temp 97.9(TE); Pulse Ox 100% on R/A; Weight 54.43 kg (R); Height 5 tw2 ft. 2 in. (157.48 cm); Pain 7/10; 18:00 BP 129 / 83; Pulse 87; Resp 19; Pulse Ox 99% on R/A; Pain 0/10; ls4 19:00 BP 118 / 85; Pulse 76; Resp 18; Pulse Ox 99% on R/A; Pain 0/10; ls4 20:00 BP 137 / 91; Pulse 74; Resp 18; Pulse Ox 99% on R/A; Pain 0/10; ls4 16:36 Body Mass Index 21.95 (54.43 kg, 157.48 cm) tw2 ED Course: 16:31 Patient arrived in ED. fj1 16:37 Triage completed. tw2 16:38 Arm band placed on. tw2 17:57 Bouchra Frank [facility]C [facility]. snw 17:57 Alejandro Gracia MD is Attending Physician. snw 17:57 Bed in low position. Call light in reach. tw2 18:00 No apparent distress. ls4 18:00 Pulse ox on. NIBP on. Warm blanket given. Verbal reassurance given. ls4 18:00 Initial lab(s) drawn, by me, sent to lab. Urine collected:. ls4 18:11 Christine Love, RN is Primary Nurse. ls4 18:15 No provider procedures requiring assistance completed. ls4 18:28 Inserted saline lock: 20 gauge in right antecubital area, using aseptic technique. dh4 19:00 Diet: Patient given juice. Tolerated well. ls4 21:00 IV discontinued, intact, bleeding controlled, No redness/swelling at site. Pressure ls4 dressing applied. Administered Medications: 20:02 Drug: NS 0.9% 1000 ml Route: IV; Rate: 1 bolus; Site: right antecubital; ls4 21:00 Follow up: IV Status: Completed infusion; IV Intake: 1000ml ls4 20:02 Drug: NS 0.9% 500 ml Route: IV; Rate: bolus; Site: right antecubital; ls4 21:20 Follow up: IV Status: Completed infusion; IV Intake: 500ml ls4 20:02 Drug: Phenergan 6.25 mg Route: IVP; Site: right antecubital; ls4 20:20 Follow up: Response: No adverse reaction; Marked relief of symptoms ls4 Intake: 21:00 IV: 1000ml; Total: 1000ml. ls4 21:20 IV: 500ml; Total: 1500ml. ls4 Outcome: 20:27 Discharge ordered by . snw 21:00 Discharged to home ambulatory. ls4 21:00 Condition: good 21:00 Discharge instructions given to patient, Instructed on discharge instructions, follow up and referral plans. medication usage, Demonstrated understanding of instructions, follow-up care. 21:01 Patient left the ED. ls4 Signatures: Bouchra Frank, NANNY/HOUSEHOLD MANAGER-C NANNY/HOUSEHOLD MANAGER-Csnw Angelica Phillip, RN RN 2 Christine Love, RN RN ls4 Reggie Michael [facility] Holden Graves 4 Corrections: (The following items were deleted from the chart) 23:52 23:51 IV Intake: 500ml ls4 ls4
--- NOTE | 2019-10-28 20:28 | EDPHYS ---
Physician Documentation [facility] Name: Donal Spring Age: 24 yrs Sex: Female : 1995 Arrival Date: 10/28/2019 Time: 16:31 Bed 19 Private MD: ED Physician Alejandro Gracia HPI: 10/27 18:07 This 24 yrs old Female presents to ER via Ambulatory with complaints of snw Nausea/Vomiting. 18:07 The patient presents to the emergency department with nausea, vomiting. Onset: The snw symptoms/episode began/occurred suddenly, 2 day(s) ago, and became persistent. Possible causes: unknown, pt LMP 1.5 years ago - Nexplant in left arm. The symptoms are aggravated by food , The symptoms are alleviated by nothing. Severity of symptoms: At their worst the symptoms were moderate. The patient has experienced a previous episode. It is unknown whether or not the patient has recently seen a physician. 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 - Social history:: Smoking status: . ROS: 18:07 Constitutional: Negative for fever, chills, and weight loss, Eyes: Negative for injury, snw pain, redness, and discharge, ENT: Negative for injury, pain, and discharge, Neck: Negative for injury, pain, and swelling, Cardiovascular: Negative for chest pain, palpitations, and edema, Respiratory: Negative for shortness of breath, cough, wheezing, and pleuritic chest pain, Back: Negative for injury and pain, : Negative for injury, bleeding, discharge, and swelling, MS/Extremity: Negative for injury and deformity, Skin: Negative for injury, rash, and discoloration, Neuro: Negative for headache, weakness, numbness, tingling, and seizure. 18:07 Abdomen/GI: Positive for nausea and vomiting. Exam: 18:03 Constitutional: This is a well developed, well nourished patient who is awake, alert, snw and in no acute distress. Head/Face: Normocephalic, atraumatic. Eyes: Pupils equal round and reactive to light, extra-ocular motions intact. Lids and lashes normal. Conjunctiva and sclera are non-icteric and not injected. Cornea within normal limits. Periorbital areas with no swelling, redness, or edema. ENT: Nares patent. No nasal discharge, no septal abnormalities noted. Tympanic membranes are normal and external auditory canals are clear. Oropharynx with no redness, swelling, or masses, exudates, or evidence of obstruction, uvula midline. Mucous membranes moist. Neck: Trachea midline, no thyromegaly or masses palpated, and no cervical lymphadenopathy. Supple, full range of motion without nuchal rigidity, or vertebral point tenderness. No Meningismus. Chest/axilla: Normal chest wall appearance and motion. Nontender with no deformity. No lesions are appreciated. 18:03 Respiratory: Lungs have equal breath sounds bilaterally, clear to auscultation and percussion. No rales, rhonchi or wheezes noted. No increased work of breathing, no retractions or nasal flaring. 18:03 Back: No spinal tenderness. No costovertebral tenderness. Full range of motion. Skin: Warm, dry with normal turgor. Normal color with no rashes, no lesions, and no evidence of cellulitis. MS/ Extremity: Pulses equal, no cyanosis. Neurovascular intact. Full, normal range of motion. Neuro: Awake and alert, GCS 15, oriented to person, place, time, and situation. Cranial nerves II-XII grossly intact. Motor strength 5/5 in all extremities. Sensory grossly intact. Cerebellar exam normal. Normal gait. Psych: Awake, alert, with orientation to person, place and time. Behavior, mood, and affect are within normal limits. 18:03 Cardiovascular: Rate: tachycardic, Rhythm: regular, Pulses: no pulse deficits are appreciated, Heart sounds: normal. 18:03 Abdomen/GI: Inspection: abdomen appears normal, Bowel sounds: hyperactive, in all quadrants, Palpation: abdomen is soft and non-tender. Vital Signs: 16:36 Pulse 89; Resp 17; Temp 97.9(TE); Pulse Ox 100% on R/A; Weight 54.43 kg (R); Height 5 tw2 ft. 2 in. (157.48 cm); Pain 7/10; 18:00 BP 129 / 83; Pulse 87; Resp 19; Pulse Ox 99% on R/A; Pain 0/10; ls4 19:00 BP 118 / 85; Pulse 76; Resp 18; Pulse Ox 99% on R/A; Pain 0/10; ls4 20:00 BP 137 / 91; Pulse 74; Resp 18; Pulse Ox 99% on R/A; Pain 0/10; ls4 16:36 Body Mass Index 21.95 (54.43 kg, 157.48 cm) tw2 MDM: 17:58 Patient medically screened. snw 20:27 Data reviewed: vital signs, nurses notes. Data interpreted: Pulse oximetry: on room air snw is 99 %. Interpretation:. Counseling: I had a detailed discussion with the patient and/or guardian regarding: the historical points, exam findings, and any diagnostic results supporting the discharge/admit diagnosis, lab results, the need for outpatient follow up, to return to the emergency department if symptoms worsen or persist or if there are any questions or concerns that arise at home. Special discussion: Based on the history and exam findings, there is no indication for further emergent testing or inpatient evaluation. I discussed with the patient/guardian the need to see the primary care provider for further evaluation of the symptoms. 20:28 Special discussion: I have referred the patient to see his PCP for further evaluation snw of high blood pressure. 10/27 18:03 Order name: CBC with Diff; Complete Time: 19:38 snw 10/27 18:03 Order name: Chem 7; Complete Time: 19:38 snw 10/27 18:03 Order name: Test, Serum; Complete Time: 19:38 snw 10/27 18:40 Order name: Urine Dipstick--Ancillary (enter results); Complete Time: 20:45 bd 10/27 18:40 Order name: Urine --Ancillary (enter results); Complete Time: 20:45 bd Administered Medications: 20:02 Drug: NS 0.9% 1000 ml Route: IV; Rate: 1 bolus; Site: right antecubital; ls4 21:00 Follow up: IV Status: Completed infusion; IV Intake: 1000ml ls4 20:02 Drug: NS 0.9% 500 ml Route: IV; Rate: bolus; Site: right antecubital; ls4 21:20 Follow up: IV Status: Completed infusion; IV Intake: 500ml ls4 20:02 Drug: Phenergan 6.25 mg Route: IVP; Site: right antecubital; ls4 20:20 Follow up: Response: No adverse reaction; Marked relief of symptoms ls4 Disposition: 10/28 13:18 Co-signature as Attending Physician, Alejandro Gracia MD I agree with the assessment and kdr plan of care. Disposition: 10/28/19 20:27 Discharged to Home. Impression: Nausea and vomiting, Volume depletion. - Condition is Stable. - Discharge Instructions: Nausea and Vomiting, Adult, Rehydration, Adult. - Prescriptions for Zofran 4 mg Oral Tablet - take 1 tablet by ORAL route every 12 hours As needed; 20 tablet. - Medication Reconciliation Form, Thank You Letter, Antibiotic Education, Prescription Opioid Use, Work release form form. - Follow up: Emergency Department; When: As needed; Reason: Worsening of condition. Follow up: Private Physician; When: 2 - 3 days; Reason: Recheck today's complaints, Continuance of care, Re-evaluation by your physician. Signatures: Dispatcher [employer] EDWI Alejandro Gracia MD MD [facility] Bouchra Frank, BUSINESS SERVICES COORDINATOR-C BUSINESS SERVICES COORDINATOR-Csnw Angelica Phillip RN RN tw2 Christine Love, RN RN ls4 Corrections: (The following items were deleted from the chart) 10/27 21:01 20:27 10/28/2019 20:27 Discharged to Home. Impression: Nausea and vomiting; Volume ls4 depletion. Condition is Stable. Discharge Instructions: Nausea and Vomiting, Adult, Rehydration, Adult. Prescriptions for Zofran 4 mg Oral Tablet - take 1 tablet by ORAL route every 12 hours As needed; 20 tablet. and Forms are Work release form, Medication Reconciliation Form, Thank You Letter, Antibiotic Education, Prescription Opioid Use. Follow up: Emergency Department; When: As needed; Reason: Worsening of condition. Follow up: Private Physician; When: 2 - 3 days; Reason: Recheck today's complaints, Continuance of care, Re-evaluation by your physician. snw
[2019-10-28 20:43] LABS: Urine Blood TRACE (NEG); Urine Glucose NEGATIVE (NEG); Urine Protein 1+ (NEG); Urine Specific Gravity >1.030 (1.005-1.030)
[2019-10-28 21:22] VITALS: TEMP 97.9
[2019-10-28 21:24] VITALS: O2SAT 99
[2019-10-28 21:27] VITALS: BP 137/91
== END 2019-10-28 21:01 | disposition home or self-care (01) ==
LOC: ER 16:20
DX: E86.9 Volume depletion, unspecified (principal)
CPT/HCPCS: 36415; 80048; 81003; 81025; 84703; 85025; 96361; 96374; 99284; J2405; J2550; J7030

== ENCOUNTER 2020-08-20 15:11 | Emergency (ER) | payer SELFPAY ==
--- OUTSIDE RECORDS SUMMARY | 2020-08-20 15:12 | XMS REPORT | Continuity of Care Document ---
:1995 Author Organization [facility] t Address [address] [place] [address] [place] [id number] Care Team Providers Name Role Phone Unavailable Unavailable Unavailable Problems This patient has no known problems. Allergies, Adverse Reactions, Alerts This patient has no known allergies or adverse reactions. Medications This patient has no known medications. Procedures This patient has no known procedures. Results This patient has no known results.
[2020-08-20 17:23] LABS: Urine Blood Negative (Negative); Urine Glucose Negative (Negative); Urine Protein Negative (Negative); Urine Specific Gravity 1.025 (1.005-1.030); Urine pH 8.5 (5.0-7.0)
[2020-08-20 17:57] LABS: Urine Specific Gravity/Preg 1.025 (1.005-1.030)
[2020-08-20] MEDS ORDERED: ONDANSETRON 4 MG/2 ML VIAL ONE (17:59)
[2020-08-20] MEDS ORDERED: FAMOTIDINE 20 MG/2 ML VIAL IV ONE (17:59)
[2020-08-20] MEDS ORDERED: NA CHLORIDE 0.9% 1,000 ML ONE (17:59)
[2020-08-20 18:09] LABS: Absolute Lymphocytes (CBC) 2.2 K/uL (0.7-4.9); Basophils % 0.6 % (0-1.3); Hematocrit 40.1 % (36.0-45.0); Lymphocytes % 41.1 % (15.3-44.8); MPV 7.7 fL (7.6-11.3); RBC Red Blood Cell Count 4.51 M/uL (3.86-4.86)
[2020-08-20 18:42] LABS: ALT/SGPT 37 U/L (12-78); AST/SGOT 28 U/L (15-37); Albumin 4.1 g/dL (3.4-5.0); Alkaline Phosphatase 65 U/L (45-117); BUN Blood Urea Nitrogen 7 mg/dL (7-18); Bicarbonate 27 mmol/L (21-32); Bilirubin Direct < 0.1 mg/dL (0-0.2); Bilirubin Total 0.2 mg/dL (0.2-1.0); Glucose Level 96 mg/dL (74-106); Lipase 142 U/L (73-393); Potassium 3.8 mmol/L (3.5-5.1); Protein, Total 7.5 g/dL (6.4-8.2); Sodium Level 144 mmol/L (136-145)
--- NOTE | 2020-08-20 20:32 | EDPHYS ---
Physician Documentation [facility] Name: Donal Spring Age: 24 yrs Sex: Female : 1995 Arrival Date: 08/20/2020 Time: 15:13 Bed 27 Private MD: ED Physician Catherine Medina HPI: 08/20 17:35 This 24 yrs old Female presents to ER via Ambulatory with complaints of cp Nausea/Vomiting. 17:35 The patient presents to the emergency department with nausea, that is mild, vomiting, cp that is intermittent. Onset: The symptoms/episode began/occurred 2 day(s) ago. Possible causes: unknown. Associated signs and symptoms: Pertinent positives: anorexia, Pertinent negatives: abdominal pain, diarrhea, dysuria, GI bleeding. Severity of symptoms: in the emergency department the symptoms are unchanged despite home interventions. 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 - Social history:: Smoking status: Patient denies any tobacco usage or history of. ROS: 17:40 Abdomen/GI: Positive for nausea and vomiting, anorexia, Negative for diarrhea, cp constipation, hematemesis. 17:40 Eyes: Negative for injury, pain, redness, and discharge. cp 17:40 Constitutional: Negative for body aches, chills, fever. 17:40 ENT: Negative for ear pain, sore throat, difficulty swallowing, difficulty handling secretions. 17:40 Cardiovascular: Negative for chest pain, palpitations. 17:40 Respiratory: Negative for cough, shortness of breath, wheezing. 17:40 Skin: Negative for cellulitis, rash. 17:40 Neuro: Negative for altered mental status, headache, weakness. 17:40 All other systems are negative. Exam: 17:45 Constitutional: The patient appears in no acute distress, alert, awake, comfortable, cp non-toxic, well developed, well nourished. 17:45 Head/Face: Normocephalic, atraumatic. cp 17:45 Eyes: Periorbital structures: appear normal, Conjunctiva: normal, no exudate, no injection, Sclera: no appreciated abnormality, Lids and lashes: appear normal, bilaterally. 17:45 ENT: External ear(s): are unremarkable, Nose: is normal, Mouth: Lips: moist, Oral mucosa: moist, Posterior pharynx: Airway: no evidence of obstruction, patent. 17:45 Chest/axilla: Inspection: normal, Palpation: is normal, no crepitus, no tenderness. 17:45 Cardiovascular: Rate: normal, Rhythm: regular. 17:45 Respiratory: the patient does not display signs of respiratory distress, Respirations: normal, no use of accessory muscles, no retractions, labored breathing, is not present, Breath sounds: are clear throughout, no decreased breath sounds. 17:45 Abdomen/GI: Inspection: abdomen appears normal, Bowel sounds: active, all quadrants, Palpation: abdomen is soft and non-tender, in all quadrants. 17:45 Back: pain, is absent, ROM is normal. Vital Signs: 15:41 BP 124 / 92; Pulse 99; Resp 18 S; Temp 97.4; Pulse Ox 100% on R/A; Weight 52.16 kg (R); ca1 Height 5 ft. 1 in. (154.94 cm) (R); Pain 0/10; 17:20 BP 121 / 80; Pulse 90; Resp 17; Pulse Ox 98% ; rr5 18:20 BP 102 / 79; Pulse 92; Resp 16; Pulse Ox 99% ; rr5 19:47 BP 105 / 79; Pulse 91; Resp 16; Pulse Ox 99% ; rr5 20:50 BP 115 / 70; Pulse 85; Resp 17; Pulse Ox 98% ; rr5 15:41 Body Mass Index 21.73 (52.16 kg, 154.94 cm) ca1 MDM: 17:37 Patient medically screened. cp 18:00 Differential diagnosis: gastritis, cholecystitis, pancreatitis, appendicitis, viral cp gastroenteritis, gastroenteritis. 20:30 Data reviewed: vital signs, lab test result(s), radiologic studies, ultrasound. cp 20:30 Counseling: I had a detailed discussion with the patient and/or guardian regarding: the cp historical points, exam findings, and any diagnostic results supporting the discharge/admit diagnosis, lab results, radiology results, to return to the emergency department if symptoms worsen or persist or if there are any questions or concerns that arise at home. Response to treatment: VSS. No vomiting observed while monitoring patient in ED. Patient observed tolerating po fluids. Will discharge to home for continued monitoring. 08/20 17:22 Order name: Urine Dipstick-Ancillary EDMS 08/20 17:32 Order name: Urine --Ancillary (enter results); Complete Time: 18:43 eb 08/20 17:35 Order name: Basic Metabolic Panel cp 08/20 17:35 Order name: CBC with Diff; Complete Time: 18:43 cp 08/20 17:35 Order name: Hepatic Function cp 08/20 17:35 Order name: Lipase; Complete Time: 18:43 cp 08/20 17:13 Order name: Urine Dipstick-Ancillary (obtain specimen); Complete Time: 17:23 cp 08/20 17:13 Order name: Urine Test (obtain specimen); Complete Time: 17:23 cp 08/20 17:36 Order name: Basic Metabolic Panel; Complete Time: 18:43 EDMS 08/20 17:36 Order name: Liver (Hepatic) Function; Complete Time: 18:43 EDMS 08/20 18:44 Order name: US Abdomen Limited: RUQ/epigastric cp 08/20 17:35 Order name: IV Saline Lock; Complete Time: 17:53 cp 08/20 17:35 Order name: Labs collected and sent; Complete Time: 17:53 cp Administered Medications: 17:50 Drug: NS 0.9% 1000 ml Route: IV; Rate: 1 bolus; Site: left forearm; rr5 18:59 Follow up: Response: No adverse reaction; IV Status: Completed infusion; IV Intake: rr5 1000ml 17:50 Drug: Zofran (Ondansetron) 4 mg Route: IVP; Site: left forearm; rr5 18:59 Follow up: Response: No adverse reaction rr5 17:52 Drug: Pepcid (famotidine) 20 mg Route: IVP; Site: left forearm; rr5 18:59 Follow up: Response: No adverse reaction rr5 Disposition: 08/20/20 20:31 Discharged to Home. Impression: Nausea and vomiting. - Condition is Stable. - Discharge Instructions: Nausea and Vomiting, Adult. - Prescriptions for Pepcid 20 mg Oral Tablet - take 1 tablet by ORAL route every 12 hours for 10 days; 20 tablet. Zofran 4 mg Oral Tablet - take 1 tablet by ORAL route every 12 hours As needed; 20 tablet. - Medication Reconciliation Form, Thank You Letter, Antibiotic Education, Prescription Opioid Use form. - Follow up: Theo Frazier MD; When: 2 - 3 days; Reason: Recheck today's complaints. - Problem is new. - Symptoms have improved. Addendum: 08/22/2020 18:40 Co-signature as Attending Physician, Catherine Medina MD. m a2 Signatures: Dispatcher [employer] EDMS Titus Morgan PA PA cp Catherine Medina MD MD ma2 Derek Flynn, RN RN rr5 Lin Miller RN RN ca1 Corrections: (The following items were deleted from the chart) 08/20 20:52 20:31 08/20/2020 20:31 Discharged to Home. Impression: Nausea and vomiting. Condition rr5 is Stable. Forms are Medication Reconciliation Form, Thank You Letter, Antibiotic Education, Prescription Opioid Use. Follow up: Theo Frazier; When: 2 - 3 days; Reason: Recheck today's complaints. Problem is new. Symptoms have improved. cp
--- NOTE | 2020-08-20 20:32 | ER ---
Nurse's Notes [facility] Name: Donal Spring Age: 24 yrs Sex: Female : 1995 Arrival Date: 08/20/2020 Time: 15:13 Bed 27 Private MD: Diagnosis: Nausea and vomiting Presentation: 08/20 15:41 Chief complaint: Patient states: N/V every 30 minutes x 2 days. Took test and ca1 it was negative. Coronavirus screen: Client denies travel out of the [place] in the last 14 days. nausea, vomiting. Client presents with at least one sign or symptom that may indicate coronavirus-19. Standard/surgical mask placed on the client. Provider contacted for isolation considerations. Ebola Screen: Patient negative for fever greater than or equal to 101.5 degrees Fahrenheit, and additional compatible Ebola Virus Disease symptoms Patient denies exposure to infectious person. Patient denies travel to an Ebola-affected area in the 21 days before illness onset. No symptoms or risks identified at this time. Initial Sepsis Screen: Does the patient meet any 2 criteria? No. Patient's initial sepsis screen is negative. Does the patient have a suspected source of infection? No. Patient's initial sepsis screen is negative. Risk Assessment: Do you want to hurt yourself or someone else? Patient reports no desire to harm self or others. Onset of symptoms was August 20, 2020. 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 - Social history:: Smoking status: Patient denies any tobacco usage or history of. Screenin:40 Abuse screen: Denies threats or abuse. Denies injuries from another. Nutritional rr5 screening: No deficits noted. Tuberculosis screening: No symptoms or risk factors identified. Fall Risk IV access (20 points). Total Peña Fall Scale indicates No Risk (0-24 pts). Assessment: 17:20 General: Appears in no apparent distress. comfortable, Behavior is calm, cooperative, rr5 appropriate for age. 17:20 Pain: Denies pain. Neuro: Level of Consciousness is awake, alert, obeys commands, rr5 Oriented to person, place, time. Cardiovascular: Capillary refill < 3 seconds Patient's skin is warm and dry. Respiratory: Airway is patent Respiratory effort is even, unlabored, Respiratory pattern is regular, symmetrical. GI: Abdomen is flat, non-distended, Reports nausea, vomiting. : No signs and/or symptoms were reported regarding the genitourinary system. EENT: No signs and/or symptoms were reported regarding the EENT system. Derm: Skin is intact, is healthy with good turgor, Skin temperature is warm. Musculoskeletal: Circulation, motion, and sensation intact. Capillary refill < 3 seconds. 18:30 Reassessment: Patient appears in no apparent distress at this time. Patient is alert, rr5 oriented x 3, equal unlabored respirations, skin warm/dry/pink. Patient states symptoms have improved. 19:46 Reassessment: Patient appears in no apparent distress at this time. Patient is alert, rr5 oriented x 3, equal unlabored respirations, skin warm/dry/pink. awaiting for ultrasound procedure. 20:50 Reassessment: Patient appears in no apparent distress at this time. Patient is alert, rr5 oriented x 3, equal unlabored respirations, skin warm/dry/pink. discharge instruction given and explained without complaints made Patient states feeling better. Patient states symptoms have improved. Vital Signs: 15:41 BP 124 / 92; Pulse 99; Resp 18 S; Temp 97.4; Pulse Ox 100% on R/A; Weight 52.16 kg (R); ca1 Height 5 ft. 1 in. (154.94 cm) (R); Pain 0/10; 17:20 BP 121 / 80; Pulse 90; Resp 17; Pulse Ox 98% ; rr5 18:20 BP 102 / 79; Pulse 92; Resp 16; Pulse Ox 99% ; rr5 19:47 BP 105 / 79; Pulse 91; Resp 16; Pulse Ox 99% ; rr5 20:50 BP 115 / 70; Pulse 85; Resp 17; Pulse Ox 98% ; rr5 15:41 Body Mass Index 21.73 (52.16 kg, 154.94 cm) ca1 ED Course: 15:13 Patient arrived in ED. ds1 15:43 Triage completed. ca1 15:43 Arm band placed on right wrist. ca1 17:13 Titus Morgan PA is PHCP. cp 17:13 Catherine Medina MD is Attending Physician. cp 17:15 Derek Flynn, RN is Primary Nurse. rr5 17:20 Patient has correct armband on for positive identification. Bed in low position. Call rr5 light in reach. Pulse ox on. NIBP on. 17:30 Urine collected: clean catch specimen, clear. rr5 17:50 Inserted saline lock: 20 gauge in left forearm, using aseptic technique. Blood rr5 collected. 17:50 No provider procedures requiring assistance completed. rr5 19:56 ultrasound at bedside. rr5 20:30 Theo Frazier MD is Referral Physician. cp 20:59 US Abdomen Limited: RUQ/epigastric In Process Unspecified. EDMS 20:59 IV discontinued, intact, bleeding controlled, No redness/swelling at site. Pressure rr5 dressing applied. Administered Medications: 17:50 Drug: NS 0.9% 1000 ml Route: IV; Rate: 1 bolus; Site: left forearm; rr5 18:59 Follow up: Response: No adverse reaction; IV Status: Completed infusion; IV Intake: rr5 1000ml 17:50 Drug: Zofran (Ondansetron) 4 mg Route: IVP; Site: left forearm; rr5 18:59 Follow up: Response: No adverse reaction rr5 17:52 Drug: Pepcid (famotidine) 20 mg Route: IVP; Site: left forearm; rr5 18:59 Follow up: Response: No adverse reaction rr5 Intake: 18:59 IV: 1000ml; Total: 1000ml. rr5 Outcome: 20:31 Discharge ordered by MD. cp 20:52 Patient left the ED. rr5 20:59 Discharged to home ambulatory. rr5 20:59 Condition: stable 20:59 Discharge instructions given to patient, Instructed on discharge instructions, follow up and referral plans. medication usage, Demonstrated understanding of instructions, follow-up care, medications, Prescriptions given X 2. Signatures: Dispatcher [employer] EDWV Maria M Kaur ds1 Titus Morgan PA PA cp Derek Flynn, RN RN rr5 Lin Miller RN RN ca1
--- NOTE | 2020-08-20 21:37 | RAD REPORT ---
EXAM DESCRIPTION: US - Abdomen Exam Limited - 08/20/2020 8:59 pm CLINICAL HISTORY: Abdominal pain. COMPARISON: None. FINDINGS: The gallbladder wall is not thickened. A gallstone is not seen. The biliary tree is normal caliber. Liver has increased echotexture consistent with fatty infiltration. Mild hepatomegaly IMPRESSION: Unremarkable gallbladder ultrasound. Fatty liver. Liver appears mildly enlarged
[2020-08-21 10:13] VITALS: TEMP 97.4
[2020-08-21 10:44] VITALS: O2SAT 99
[2020-08-21 10:45] VITALS: BP 105/79
== END 2020-08-20 20:52 | disposition home or self-care (01) ==
LOC: ER 15:11
DX: R11.2 Nausea with vomiting, unspecified (principal)
CPT/HCPCS: 36415; 76705; 80048; 80076; 81003; 81025; 83690; 85025; 96361; 96374; 96375; 99284; J2405; J7030

== ENCOUNTER 2020-12-09 17:37 | Emergency (ER) | payer SELFPAY ==
--- OUTSIDE RECORDS SUMMARY | 2020-12-09 17:40 | XMS REPORT | Continuity of Care Document ---
:[address] [facility] t Address [address] [place] [address] Care Team Providers Name Role Phone Unavailable Unavailable Unavailable Problems This patient has no known problems. Allergies, Adverse Reactions, Alerts This patient has no known allergies or adverse reactions. Medications This patient has no known medications. Procedures This patient has no known procedures. Results This patient has no known results.
[2020-12-09] MEDS ORDERED: ACETAMINOPHEN 500 MG TAB ONE (18:41)
[2020-12-09 18:50] LABS: Urine Blood 3+ (Negative); Urine Glucose Negative (Negative); Urine Protein 2+ (Negative); Urine Specific Gravity 1.025 (1.005-1.030); Urine pH 5.5 (5.0-7.0)
[2020-12-09 20:00] LABS: Urine Specific Gravity/Preg 1.025 (1.005-1.030)
[2020-12-09 20:37] LABS: Urine Blood 2+ (Negative); Urine Glucose Negative (Negative); Urine Protein Negative (Negative); Urine Specific Gravity <=1.005 (1.005-1.030)
[2020-12-09 21:07] LABS: Absolute Lymphocytes (CBC) 0.7 K/uL (0.7-4.9); Basophils % 0.3 % (0-1.3); Hematocrit 41.4 % (36.0-45.0); Lymphocytes % 5.1 % (15.3-44.8); MPV 7.9 fL (7.6-11.3); RBC Red Blood Cell Count 4.63 M/uL (3.86-4.86)
[2020-12-09 21:21] LABS: Urine Bacteria 20-50 /HPF (<20); Urine Mucus 1+ /HPF (NONE SEEN); Urine RBC <5 /HPF (NONE SEEN)
[2020-12-09 21:26] LABS: Blood Morphology Comment NOT SEEN (NOT SEEN); Platelet Estimate ADEQ; White Blood Cell Scan OK (OK)
[2020-12-09] MEDS ORDERED: NA CHLORIDE 0.9% 1,000 ML ONE (21:53)
[2020-12-09] MEDS ORDERED: KETOROLAC 30 MG/ML INJ ONE (21:53)
[2020-12-09 22:08] LABS: ALT/SGPT 18 U/L (12-78); AST/SGOT 15 U/L (15-37); Albumin 3.2 g/dL (3.4-5.0); Alkaline Phosphatase 114 U/L (45-117); BUN Blood Urea Nitrogen 6 mg/dL (7-18); Bicarbonate 27 mmol/L (21-32); Bilirubin Direct 0.5 mg/dL (0-0.2); Bilirubin Total 0.9 mg/dL (0.2-1.0); Glucose Level 94 mg/dL (74-106); Lipase 52 U/L (73-393); Potassium 3.1 mmol/L (3.5-5.1); Protein, Total 8.1 g/dL (6.4-8.2); Sodium Level 140 mmol/L (136-145)
--- NOTE | 2020-12-09 23:07 | ER ---
Nurse's Notes [facility] Name: Donal Spring Age: 25 yrs Sex: Female : 1995 Arrival Date: 12/09/2020 Time: 17:39 Bed 15 Private MD: Diagnosis: Lower abdominal pain, unspecified;UTI/ Urinary tract infection, site not specified Presentation: 12/09 18:03 Chief complaint: Worsening diffuse abdominal pain x 10 days. Denies N/V/D. Coronavirus hb screen: At this time, the client does not indicate any symptoms associated with coronavirus-19. Ebola Screen: No symptoms or risks identified at this time. Initial Sepsis Screen: Does the patient meet any 2 criteria? No. Patient's initial sepsis screen is negative. Does the patient have a suspected source of infection? No. Patient's initial sepsis screen is negative. Risk Assessment: Do you want to hurt yourself or someone else? Patient reports no desire to harm self or others. Onset of symptoms was November 29, 2020. 18:03 Method Of Arrival: Ambulatory hb 18:03 Acuity: MAXIMILIANO 3 hb Historical: - Allergies: 18:07 No Known Allergies; hb - Home Meds: 18:07 None [Active]; hb - PMHx: 18:07 None; hb - PSHx: 18:07 None; hb - Immunization history:: Adult Immunizations up to date. - Social history:: Smoking status: Patient denies any tobacco usage or history of. Screenin:30 Abuse screen: Denies threats or abuse. Nutritional screening: No deficits noted. jb4 Tuberculosis screening: No symptoms or risk factors identified. Fall Risk None identified. Assessment: 20:30 General: Appears in no apparent distress. uncomfortable, Behavior is calm, cooperative, jb4 appropriate for age. Pain: Complains of pain in umbilical area, suprapubic area, right lower quadrant and left lower quadrant Pain does not radiate. Pain currently is 8 out of 10 on a pain scale. Quality of pain is described as crampy. Neuro: Level of Consciousness is awake, alert, obeys commands, Oriented to person, place, time, situation. Cardiovascular: Patient's skin is warm and dry. Respiratory: Airway is patent Respiratory effort is even, unlabored, Respiratory pattern is regular, symmetrical. GI: Abdomen is flat, non-distended, Abd is soft X 4 quads Abd is non tender in right upper quadrant and left upper quadrant Abdomen is tender to palpation in umbilical area, suprapubic area, right lower quadrant and left lower quadrant. : No signs and/or symptoms were reported regarding the genitourinary system. EENT: No signs and/or symptoms were reported regarding the EENT system. Derm: Skin is intact, Skin is pink, warm \T\ dry. Musculoskeletal: Circulation, motion, and sensation intact. Range of motion: intact in all extremities. 22:03 Reassessment: Patient appears in no apparent distress at this time. Patient and/or jb4 family updated on plan of care and expected duration. Pain level reassessed. Patient is alert, oriented x 3, equal unlabored respirations, skin warm/dry/pink. 23:00 Reassessment: Patient appears in no apparent distress at this time. Patient and/or jb4 family updated on plan of care and expected duration. Pain level reassessed. Patient is alert, oriented x 3, equal unlabored respirations, skin warm/dry/pink. Vital Signs: 18:03 BP 126 / 93; Pulse 102; Resp 16; Temp 101.3(O); Pulse Ox 100% ; Pain 7/10; hb 21:45 BP 124 / 82; Pulse 83; Resp 16; Pulse Ox 100% on R/A; jb4 23:00 BP 102 / 83; Pulse 81; Resp 15; Pulse Ox 100% on R/A; jb4 ED Course: 17:39 Patient arrived in ED. rg4 18:06 Triage completed. hb 18:07 Arm band placed on. hb 20:28 Mendy Ruvalcaba FNP-C is PHCP. kb 20:28 Meliton North MD is Attending Physician. kb 20:30 Patient has correct armband on for positive identification. Bed in low position. Call jb4 light in reach. Side rails up X 1. Pulse ox on. NIBP on. 20:31 Alec Milan, BARRY is Primary Nurse. jb4 20:48 Inserted saline lock: 20 gauge in right antecubital area, using aseptic technique. dh4 Blood collected. 22:16 CT Abd/Pelvis - IV Contrast Only In Process Unspecified. EDMS 23:24 Assist provider with bone marrow aspiration. IV discontinued, intact, bleeding jb4 controlled, No redness/swelling at site. Pressure dressing applied. Administered Medications: 18:20 Drug: Tylenol 1000 mg Route: PO; hb 21:35 Drug: NS 0.9% 1000 ml Route: IV; Rate: 1000 ml; Site: right antecubital; jb4 22:30 Follow up: Response: No adverse reaction; IV Status: Completed infusion; IV Intake: jb4 1000ml 21:35 Drug: Ketorolac 30 mg Route: IVP; Site: right antecubital; jb4 22:00 Follow up: Response: No adverse reaction; Marked relief of symptoms; Pain is decreased jb4 23:15 Drug: Potassium Chloride 40 mEq Route: PO; jb4 23:22 Follow up: Response: Medication administered at discharge. jb4 23:15 Drug: Macrobid (nitrofurantoin) 100 mg Route: PO; jb4 23:22 Follow up: Response: Medication administered at discharge. jb4 Intake: 22:30 IV: 1000ml; Total: 1000ml. jb4 Outcome: 23:06 Discharge ordered by MD. calvo 23:24 Discharged to home ambulatory, with friend. jb4 23:24 Condition: stable 23:24 Discharge instructions given to patient, Instructed on discharge instructions, follow up and referral plans. medication usage, Demonstrated understanding of instructions, follow-up care, medications, Prescriptions given X 1. 23:24 Patient left the ED. jb4 Signatures: Dispatcher [employer] EDMendy Chu, FLOREN[employer] PAVER INSTALLER-Yoanna Rubin RN RN hb Garcia, Rubi 4 Alec Milan RN RN [facility]
--- NOTE | 2020-12-09 23:07 | EDPHYS ---
Physician Documentation [facility] Name: Donal Spring Age: 25 yrs Sex: Female : 1995 Arrival Date: 12/09/2020 Time: 17:39 Bed 15 Private MD: ED Physician Meliton North HPI: 12/09 23:22 This 25 yrs old Female presents to ER via Ambulatory with complaints of kb Abdominal Pain. 23:22 The patient presents with abdominal pain in the lower abdomen. Onset: The kb symptoms/episode began/occurred 2 week(s) ago. The symptoms do not radiate. Associated signs and symptoms: Pertinent positives: fever, Pertinent negatives: nausea, vomiting, and diarrhea. The symptoms are described as constant. Modifying factors: The symptoms are alleviated by nothing, the symptoms are aggravated by nothing. Severity of pain: At its worst the pain was moderate in the emergency department the pain is unchanged. The patient has not experienced similar symptoms in the past. The patient has not recently seen a physician. Reports lower abdominal pain that started 2 weeks ago. Denies nausea vomiting diarrhea. Denies fever at home but fever in triage. Historical: - Allergies: 18:07 No Known Allergies; hb - Home Meds: 18:07 None [Active]; hb - PMHx: 18:07 None; hb - PSHx: 18:07 None; hb - Immunization history:: Adult Immunizations up to date. - Social history:: Smoking status: Patient denies any tobacco usage or history of. ROS: 23:17 : Negative for injury, bleeding, discharge, and swelling. kb 23:17 Constitutional: Positive for fever, Negative for body aches, chills, fatigue, malaise, poor PO intake, weight loss. 23:17 Abdomen/GI: Positive for abdominal pain, Negative for nausea, vomiting, and diarrhea. 23:17 All other systems are negative. Exam: 23:17 Constitutional: This is a well developed, well nourished patient who is awake, alert, kb and in no acute distress. Head/Face: Normocephalic, atraumatic. ENT: Moist Mucous membranes Cardiovascular: Regular rate and rhythm with a normal S1 and S2. No gallops, murmurs, or rubs. No pulse deficits. Respiratory: Respirations even and unlabored. No increased work of breathing, no retractions or nasal flaring. Skin: Warm, dry with normal turgor. Normal color. MS/ Extremity: Pulses equal, no cyanosis. Neurovascular intact. Full, normal range of motion. Neuro: Awake and alert, GCS 15, oriented to person, place, time, and situation. Moves all extremities. Normal gait. Psych: Awake, alert, with orientation to person, place and time. Behavior, mood, and affect are within normal limits. 23:17 Abdomen/GI: Inspection: abdomen appears normal, Bowel sounds: normal, in all quadrants, Palpation: soft, in all quadrants, mild abdominal tenderness, in the right lower quadrant and left lower quadrant. Vital Signs: 18:03 BP 126 / 93; Pulse 102; Resp 16; Temp 101.3(O); Pulse Ox 100% ; Pain 7/10; hb 21:45 BP 124 / 82; Pulse 83; Resp 16; Pulse Ox 100% on R/A; jb4 23:00 BP 102 / 83; Pulse 81; Resp 15; Pulse Ox 100% on R/A; jb4 MDM: 20:28 Patient medically screened. kb 23:20 Data reviewed: vital signs, nurses notes. Data interpreted: Pulse oximetry: on room air kb is 100 %. Interpretation: normal. Counseling: I had a detailed discussion with the patient and/or guardian regarding: the historical points, exam findings, and any diagnostic results supporting the discharge/admit diagnosis, lab results, radiology results, the need for outpatient follow up, a family practitioner, to return to the emergency department if symptoms worsen or persist or if there are any questions or concerns that arise at home. 12/09 18:50 Order name: Urine Dipstick-Ancillary; Complete Time: 20:31 EDLA 12/09 18:52 Order name: Urine --Ancillary (enter results); Complete Time: 20:31 em1 12/09 20:28 Order name: Basic Metabolic Panel kb 12/09 20:28 Order name: CBC with Diff; Complete Time: 21:31 kb 12/09 20:28 Order name: Hepatic Function kb 12/09 20:28 Order name: Lipase kb 12/09 20:29 Order name: Basic Metabolic Panel; Complete Time: 22:12 EDMS 12/09 20:29 Order name: Liver (Hepatic) Function; Complete Time: 22:12 EDLA 12/09 20:29 Order name: Lipase; Complete Time: 22:12 EDLA 12/09 20:32 Order name: Urine Microscopic Only kb 12/09 20:32 Order name: Urine Microscopic Only; Complete Time: 21:31 [facility] 12/09 20:36 Order name: Urine Dipstick-Ancillary; Complete Time: 20:46 EDLA 12/09 21:21 Order name: Urine Culture [facility] 12/09 21:26 Order name: CBC Smear Scan; Complete Time: 21:31 [facility] 12/09 20:28 Order name: IV Saline Lock; Complete Time: 20:48 kb 12/09 20:28 Order name: Labs collected and sent; Complete Time: 20:49 kb 12/09 21:17 Order name: CT Abd/Pelvis - IV Contrast Only kb Administered Medications: 18:20 Drug: Tylenol 1000 mg Route: PO; hb 21:35 Drug: NS 0.9% 1000 ml Route: IV; Rate: 1000 ml; Site: right antecubital; jb4 22:30 Follow up: Response: No adverse reaction; IV Status: Completed infusion; IV Intake: jb4 1000ml 21:35 Drug: Ketorolac 30 mg Route: IVP; Site: right antecubital; jb4 22:00 Follow up: Response: No adverse reaction; Marked relief of symptoms; Pain is decreased jb4 23:15 Drug: Potassium Chloride 40 mEq Route: PO; jb4 23:22 Follow up: Response: Medication administered at discharge. jb4 23:15 Drug: Macrobid (nitrofurantoin) 100 mg Route: PO; jb4 23:22 Follow up: Response: Medication administered at discharge. jb4 Disposition: 12/10 04:13 Co-signature as Attending Physician, Meliton North MD. pkl Disposition Summary: 12/09/20 23:06 Discharge Ordered Location: Home kb Condition: Stable kb Diagnosis - Lower abdominal pain, unspecified kb - UTI/ Urinary tract infection, site not specified kb Followup: kb - With: Emergency Department - When: As needed - Reason: Worsening of condition Followup: kb - With: Private Physician - When: 2 - 3 days - Reason: Recheck today's complaints, Continuance of care, Re-evaluation by your physician Discharge Instructions: - Discharge Summary Sheet kb - Urinary Tract Infection, Adult, [id number] kb - Abdominal Pain, Adult, [id number] kb Forms: - Medication Reconciliation Form kb - Thank You Letter kb - Antibiotic Education kb - Prescription Opioid Use kb Prescriptions: - Macrobid 100 mg Oral Capsule - take 1 capsule by ORAL route every 12 hours for 10 days; 20 capsule; Refills: kb 0, Product Selection Permitted Signatures: Dispatcher [employer] EDMendy Chu, Meliton Ellis MD MD pkl Yoanna Alejandra, RN RN Alec Milan RN RN jb4
[2020-12-09] MEDS ORDERED: POTASSIUM CL SA 10 MEQ TAB PO ONE (23:29)
[2020-12-09] MEDS ORDERED: NITROFURAN MACRO 100 MG CAP PO ONE (23:29)
[2020-12-10 01:30] VITALS: TEMP 101.3; O2SAT 100
[2020-12-10 01:33] VITALS: BP 102/83
--- NOTE | 2020-12-10 10:38 | RAD REPORT ---
EXAM DESCRIPTION: CT - Abdomen Pelvis W Contrast - 12/10/2020 6:18 am CLINICAL HISTORY: 25 years Female ABD PAIN TECHNIQUE: Contiguous axial images obtained through the abdomen and pelvis during and after intraven ous contrast administration. Coronal and sagittal reformatted images provided. This CT exam was performed according to our departmental dose-optimization program, which includes on e or more of the following dose reduction techniques: automated exposure control, adjustment of the m A and/or kV according to patient size, and/or use of iterative reconstruction technique. COMPARISON: No prior exams provided for comparison. FINDINGS: Minimal bibasilar atelectasis. Focal fatty infiltration of the liver along the falciform ligament. The liver is otherwise normal. The biliary tree, gallbladder, pancreas, spleen, adrenal glands, kidneys, uterus, urinary bladder, an d osseous structures are normal. Vaginal tampon in place. Small bilateral ovarian follicles. There is no bowel inflammation, obstruction, free intraperitoneal air, or ascites. The appendix is no rmal. IMPRESSION: No acute abdominal or pelvic abnormalities. Electronically signed by: Radha Lawler MD 12/09/2020 10:37 PM CDT Due to temporary technical issues with the PACS/Fluency reporting system, reports are being signed by the in house radiologists without review as a courtesy to insure prompt reporting. The interpreting radiologist is fully responsible for the content of the report.
== END 2020-12-09 23:24 | disposition home or self-care (01) ==
LOC: ER 17:37
DX: N39.0 Urinary tract infection, site not specified (principal)
CPT/HCPCS: 36415; 74177; 80048; 80076; 81003; 81015; 81025; 82565; 83690; 85025; 87086; 87088; 96361; 96374; 99285; J7030; Q9967

== ENCOUNTER 2024-04-13 11:29 | Emergency (ER) | payer OTHER ==
--- OUTSIDE RECORDS SUMMARY | 2024-04-13 11:32 | XMS REPORT | Continuity of Care Document ---
Author Name Unknown Address [address] [facility] [place]. [address] [place] [id number] [facility] Address [address] [facility] [place] [address] Care Team Providers Care Export Manager Name Role Phone Unavailable Unavailable Unavailable Encounters Start Date/Time End Date/Time Encounter Type Admission Type Attending Clinicians Care Facility Care Department Encounter ID Source 2024-03-18 15:21:52 2024-03-18 15:21:52 Outpatient [facility] S[facility] [id number] [facility]den [facility] 2023-10-22 17:31:23 2023-10-22 17:31:23 Outpatient [facility] SFA [id number] Cayden Whitehead 2023-09-26 17:04:25 2023-09-26 17:04:25 Outpatient [facility] SFA [id number] Cayden Whitehead 2023-08-16 11:33:25 2023-08-16 11:33:25 Outpatient SFA SFA [id number] Cayden Whitehead 2023-08-14 15:20:26 2023-08-14 15:20:26 Outpatient SFA SFA [id number] Cayden Whitehead 2023-08-06 16:13:53 2023-08-06 16:13:53 Outpatient SFA SFA [id number] Cayden Whitehead 2023-07-30 13:42:27 2023-07-30 13:42:27 Outpatient SFA SFA [id number] Cayden Whitehead 2023-07-23 14:27:11 2023-07-23 14:27:11 Outpatient SFA SFA [id number] Cayden Whitehead 2023-07-04 15:39:39 2023-07-04 15:39:39 Outpatient SFA SFA [id number] Cayden Whitehead 2023-03-09 10:25:16 2023-03-09 10:25:16 Outpatient SFA SFA [id number] Cayden Whitehead 2023-02-28 16:32:38 2023-02-28 16:32:38 Outpatient [facility] [id number] Cayden Whitehead 2023-02-26 15:53:15 2023-02-26 15:53:15 Outpatient [facility] [id number] Cayden Whitehead 2023-02-05 08:07:27 2023-02-05 08:07:27 Outpatient [facility] [id number] Cayden Whitehead 2023-01-16 09:00:00 2023-01-16 09:00:00 Outpatient [facility] [id number] Cayden Whitehead 2022-10-12 14:10:35 2022-10-12 14:10:35 Outpatient [facility] [id number] Cayden Whitehead 2022-04-17 11:40:47 2022-04-17 11:40:47 Outpatient [facility] [id number] Cayden Whitehead 2022-03-23 15:07:52 2022-03-23 15:07:52 Outpatient [facility] [id number] Cayden Whitehead Results Test Description Test Time Test Comments Results Result Co mments Source VAGINAL PATHOGENS DNA [id number] 14:55:40* Test Item Value Reference Range Interpretation Comme nts BEATRIZ SPECIES (test code = 23249) NEGATIVE NEGATIVE G. VAGINALIS (test code = ) POSITIVE NEGATIVE A T. VAGINALIS (test code = ) NEGATIVE NEGATIVE Note: The BD Aff irm VPIII Microbial Identification Testis a DNA probe test intended for use in the detectionand identification of Beatriz species, Gardnerellavaginalis and Trichomonas vaginalis nucleic acid. HIV 1/2 4TH GEN, RFLX [id number] 05:41:51* Test Item Value Reference Range Interpretation Comme nts HIV 1/2 4TH GEN, RFLX CONF ( test code = 3514) NON-REACTIVE NON-REACTIVE RPR REFLEX TO T. PALLIDUM - [id number] 03:11:58* Test Item Value Reference Range Interpretation Comme nts RPR (test code = 99749) NON-REACTIVE NON-REACTIVE RPR TITER (test code = 3500) NOT INDIC. TITER NOT INDIC. CT/NG, NAAT, [id number] 19:20:04* Test Item Value Reference Range Interpretation Comme nts GONORRHEA, NAAT (test code = 36257) NEGATIVE NEGATIVE IMPORTANT NO ILA: SEE ANNOUNCEMENT AT [email or web address] SparksobasUrineKit Note: Assay methodology is nucleic acid amplification by paper baler mediated amplification (TMA) utilizing the Aptima Combo 2 Assay. CHLAMYDIA, NAAT (test code = 90409) NEGATIVE NEGATIVE IMPORTANT NO ILA: SEE ANNOUNCEMENT AT [email or web address] SparksobasUrineKit Note: Assay methodology is nucleic acid amplification by paper baler mediated amplification (TMA) utilizing the Aptima Combo 2 Assay. VAGINAL PATHOGENS DNA [id number] 15:33:02* Test Item Value Reference Range Interpretation Comme nts BEATRIZ SPECIES (test code = 88786) POSITIVE NEGATIVE A G. VAGINALIS (test code = 03186) POSITIVE NEGATIVE A T. VAGINALIS (test code = 65035) NEGATIVE NEGATIVE UNLABELLED [id number] 06:01:22* Test Item Value Reference Range Interpretation Comme nts NOTE: (test code = 70808) SPECIMEN RECEIVE D WITHOUT PATIENT'S NAME. UNLESS OTHERWISE INDICATED, ALL TESTING PERFORMED [facility] [address] [place] [id number] SHUTDOWN COORDINATOR: KRISTAL ZHOA M.D. [place] NUMBER [id number] [place]. [id number]
[2024-04-13] MEDS ORDERED: FAMOTIDINE 20 MG/2 ML VIAL IV ONE (12:48)
[2024-04-13] MEDS ORDERED: NA CHLORIDE 0.9% 1,000 ML ONE (12:48)
[2024-04-13] MEDS ORDERED: ONDANSETRON 4 MG/2 ML VIAL ONE (12:48)
[2024-04-13 13:03] LABS: Absolute Lymphocytes (CBC) 1.5 K/uL (0.7-4.9); Absolute Monocytes 0.5 K/uL (0.1-1.3); Absolute Neutrophil 5.3 K/uL (1.8-8.0); Basophils % 0.3 % (0-1.3); Eosinophils % 0.5 % (0-4.4); Hematocrit 31.8 % (36.0-45.0); Hemoglobin 10.8 g/dL (12.0-15.0); Lymphocytes % 19.9 % (15.3-44.8); MCH 29.9 pg (27.0-35.0); MCHC 33.8 g/dL (32.0-36.0); MCV 88.4 fL (80-100); MPV 8.5 fL (7.6-11.3); Neutrophils % 72.3 % (41.7-73.7); Platelets 240 thou/uL (152-406); Red Cell Distribution Width 13.1 % (12.1-15.2)
[2024-04-13 13:09] LABS: Specific Gravity 1.018 (1.005-1.030); Urine Bacteria <20 /HPF (<20); Urine Bilirubin NEGATIVE (Negative); Urine Blood Negative (Negative); Urine Clarity Extremely Turbid (Clear); Urine Color Yellow (Yellow); Urine Culture Reflex Order NOT NEEDED; Urine Glucose NEGATIVE (Negative); Urine Ketones NEGATIVE (Negative); Urine Microscopic Reflex YN ORDER UMIC; Urine Mucus Slight /HPF (None Seen); Urine Nitrite NEGATIVE (Negative); Urine Protein TRACE (Negative); Urine RBC <5 /HPF (None Seen); Urine Urobilinogen Normal (Normal); Urine pH 8.5 (5.0-7.0)
[2024-04-13 13:24] LABS: Albumin 2.9 g/dL (3.4-5.0); Albumin/Globulin Ratio 0.8 (1.1-1.8); Anion Gap 9.6 mEq/L (5.0-15.0); Bilirubin Total 0.3 mg/dL (0.2-1.0); Globulin 3.6 g/dL (2.3-3.5); Potassium 3.6 mEq/L (3.5-5.1); Protein, Total 6.5 g/dL (6.4-8.2)
--- NOTE | 2024-04-13 13:41 | EDPHYS ---
Physician Documentation [facility] Pallavi Name: Donal Spring Age: 28 yrs Sex: Female : 1995 Arrival Date: 04/13/2024 Time: 11:29 Bed 7 Private MD: ED Physician Del Butler HPI: 04/13 11:47 This 28 yrs old Female presents to ER via Ambulatory with complaints of jh7 Vomiting. 11:47 28-year-old female who is 7 months presents to the ER complaining of nausea, jh7 vomiting, and diarrhea for the past 3 days. She denies any problems with this . She denies fever, any sick contacts, or any other symptoms at this time.. 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 - Infectious Disease History:: Denies. - Social history:: Smoking status: Patient denies any tobacco usage or history of. ROS: 11:47 Constitutional: Per HPI jh7 Exam: 11:47 Constitutional: This is a well developed, well nourished patient who is awake, alert, jh7 and in no acute distress. Head/Face: Normocephalic, atraumatic. Neck: Trachea midline, no thyromegaly or masses palpated, and no cervical lymphadenopathy. Supple, full range of motion without nuchal rigidity, or vertebral point tenderness. No Meningismus. Cardiovascular: Regular rate and rhythm with a normal S1 and S2. No gallops, murmurs, or rubs. Normal PMI, no JVD. No pulse deficits. Respiratory: Lungs have equal breath sounds bilaterally, clear to auscultation and percussion. No rales, rhonchi or wheezes noted. No increased work of breathing, no retractions or nasal flaring. Back: No spinal tenderness. No costovertebral tenderness. Full range of motion. Skin: Warm, dry with normal turgor. Normal color with no rashes, no lesions, and no evidence of cellulitis. MS/ Extremity: Pulses equal, no cyanosis. Neurovascular intact. Full, normal range of motion. Neuro: Awake and alert, GCS 15, oriented to person, place, time, and situation. Motor strength 5/5 in all extremities. Sensory grossly intact. Normal gait. 11:47 Abdomen/GI: Inspection: gravid appearance, is noted, Bowel sounds: normal, Palpation: abdomen is soft and non-tender, Vital Signs: 11:47 BP 120 / 71; Pulse 84; Resp 16; Temp 98.2(O); Pulse Ox 99% on R/A; Weight 61.69 kg; cm10 Height 5 ft. 2 in. ; Pain 0/10; 13:45 BP 116 / 84; Pulse 74; Resp 18 S; Pulse Ox 100% on R/A; aa5 11:47 Body Mass Index 24.87 (61.69 kg, 157.48 cm) cm10 11:47 Pain Scale: Adult cm10 MDM: 11:33 Medical Screening Exam initiated [facility] 13:38 Differential diagnosis: gastritis, cholecystitis, pancreatitis, diverticulitis, viral [facility] gastroenteritis, gastroenteritis. Data reviewed: vital signs, nurses notes, lab test result(s). I considered the following discharge prescriptions or medication management in the emergency department Medications were administered in the Emergency Department. See MAR. Historians other than the Patient: Spouse/Significant Other: . Counseling: I had a detailed discussion with the patient and/or guardian regarding the historical points, exam findings, and any diagnostic results supporting the discharge/admit diagnosis, to return to the emergency department if symptoms worsen or persist or if there are any questions or concerns that arise at home. Response to treatment: the patient's symptoms have markedly improved after treatment. 04/13 11:47 Order name: CBC with Diff; Complete Time: 13:33 [facility] 04/13 11:47 Order name: CMP; Complete Time: 13:33 [facility] 04/13 11:47 Order name: Lipase; Complete Time: 13:33 [facility] 04/13 11:47 Order name: Urinalysis w/ reflexes; Complete Time: 13:33 [facility] 04/13 11:47 Order name: Flu; Complete Time: 12:51 [facility] 04/13 11:47 Order name: IV Saline Lock; Complete Time: 12:46 [facility] 04/13 11:47 Order name: Labs collected and sent; Complete Time: 12:46 [facility] Administered Medications: 12:51 Drug: Famotidine IVP 20 mg IVP once; dilute with 10 mL 0.9% NaCl; give over 2 minutes me1 Route: IVP; Site: right antecubital; 12:51 Drug: NS 0.9% IV 1000 ml IV at 1 bolus Per protocol; to be given as a bolus over 60 me1 minutes Route: IV; Rate: 1 bolus; Site: right antecubital; 12:52 Drug: Ondansetron IVP 4 mg IVP once; over 2 minutes Route: IVP; Site: right antecubital;me1 Disposition Summary: 04/13/24 13:40 Discharge Ordered Notes: Location: Home [facility] Problem: new [facility] Symptoms: have improved [facility] Condition: Stable [facility] Diagnosis - Viral gastroenteritis [facility] Followup: [facility] - With: Private Physician - When: 2 - 3 days - Reason: Recheck today's complaints Discharge Instructions: - Discharge Summary Sheet [facility] - Viral Gastroenteritis, Adult [facility] Forms: - Work release form hb - Medication Reconciliation Form [facility] - Patient Portal Instructions [facility] - Leadership Thank You Letter [facility] Prescriptions: - ondansetron 4 mg Oral Tablet,disintegrating - take 1 tablet ORAL route every 4-6 hours As needed; 20 tablet; Refills: 0, [facility] Product Selection Permitted Signatures: Dispatcher [employer] Rupa Leblanc, BIOLOGICAL LAB TECHNICIAN BIOLOGICAL LAB TECHNICIAN [facility] Mansi Salter RN RN cm10 Anette Olvera RN RN me1
--- NOTE | 2024-04-13 13:41 | ER ---
Nurse's Notes [facility] Name: Donal Spring Age: 28 yrs Sex: Female : 1995 Arrival Date: 04/13/2024 Time: 11:29 Bed 7 Private MD: Diagnosis: Viral gastroenteritis Presentation: 04/13 11:47 Chief complaint: Patient states: Nausea, vomiting, and diarrhea onset 3 days ago. Pt cm10 approximately 7 months . Coronavirus screen: Client denies travel out of the [place] in the last 14 days. Ebola Screen: Patient denies travel to an Ebola-affected area in the 21 days before illness onset. No symptoms or risks identified at this time. Initial Sepsis Screen: Does the patient meet any 2 criteria? No. Patient's initial sepsis screen is negative. Does the patient have a suspected source of infection? No. Patient's initial sepsis screen is negative. Risk Assessment: Do you want to hurt yourself or someone else? Patient reports no desire to harm self or others. Onset of symptoms was April 10, 2024. 11:47 Method Of Arrival: Ambulatory cm10 11:47 Acuity: MAXIMILIANO 3 cm10 Triage Assessment: 11:48 General: Appears in no apparent distress. comfortable, Behavior is calm, cooperative. cm10 Neuro: No deficits noted. Level of Consciousness is awake, alert, obeys commands, Oriented to person, place, time, situation, Appropriate for age. Respiratory: No deficits noted. Airway is patent Respiratory effort is even, unlabored, Respiratory pattern is regular, symmetrical. Derm: No deficits noted. Skin is healthy with good turgor. 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 - Infectious Disease History:: Denies. - Social history:: Smoking status: Patient denies any tobacco usage or history of. Screenin:52 [facility] ED Fall Risk Assessment (Adult) History of falling in the last 3 months, me1 including since admission No falls in past 3 months (0 pts) Confusion or Disorientation No (0 pts) Intoxicated or Sedated No (0 pts) Impaired Gait No (0 pts) Mobility Assist Device Used No (0 pt) Altered Elimination No (0 pt) Score/Fall Risk Level 0 - 2 = Low Risk Maintained a safe environment, Provided non-skid footwear, Hourly rounding (assess needs \T\ fall precautionary measures) done. Abuse screen: Denies threats or abuse. Nutritional screening: No deficits noted. Tuberculosis screening: No symptoms or risk factors identified. Assessment: 12:52 General: Appears ill, well groomed, well developed, well nourished, Behavior is calm, me1 cooperative, appropriate for age, Reports N/V/D x 3 days. Patient is 7 months . Pain: Denies pain. Neuro: Level of Consciousness is awake, alert, obeys commands, Oriented to person, place, time, situation, Appropriate for age. Cardiovascular: Patient's skin is warm and dry. Respiratory: Airway is patent Respiratory effort is even, unlabored, Respiratory pattern is regular, symmetrical. GI: Reports diarrhea, nausea, vomiting, since 3 days ago. GI: Abdomen is round non-distended. : No signs and/or symptoms were reported regarding the genitourinary system. EENT: No signs and/or symptoms were reported regarding the EENT system. Derm: Skin is intact, is healthy with good turgor, Skin is pink, warm \T\ dry. Musculoskeletal: No signs and/or symptoms reported regarding the musculoskeletal system. 13:55 Reassessment: Patient is alert, oriented x 3, equal unlabored respirations, skin aa5 warm/dry/pink. Vital Signs: 11:47 BP 120 / 71; Pulse 84; Resp 16; Temp 98.2(O); Pulse Ox 99% on R/A; Weight 61.69 kg; cm10 Height 5 ft. 2 in. ; Pain 0/10; 13:45 BP 116 / 84; Pulse 74; Resp 18 S; Pulse Ox 100% on R/A; aa5 11:47 Body Mass Index 24.87 (61.69 kg, 157.48 cm) cm10 11:47 Pain Scale: Adult cm10 ED Course: 11:31 Patient arrived in ED. mg5 11:33 [facility]upa Nicolas FNP [facility] 7 11:33 Del Butler MD is Attending Physician. jh7 11:48 Triage completed. cm10 11:49 Arm band placed on right wrist. Patient placed in waiting room. cm10 11:52 Flu Sent. cm10 11:52 Flu and/or RSV swab sent to lab. cm10 12:35 Anette Olvera, RN is Primary Nurse. me1 12:45 Initial lab(s) drawn, by sc, sent to lab. Urine collected: clean catch specimen, me1 cloudy. Inserted saline lock: 22 gauge in right antecubital area, using aseptic technique. 12:46 CBC with Diff Sent. me1 12:46 CMP Sent. me1 12:46 Lipase Sent. me1 12:46 Urinalysis w/ reflexes Sent. me1 12:52 Patient has correct armband on for positive identification. Bed in low position. Call sc1 light in reach. Side rails up X 1. Provided Education on: POC. Verbalized understanding. . Client placed on continuous cardiac and pulse oximetry monitoring. NIBP monitoring applied. Pulse ox on. NIBP on. 12:52 No provider procedures requiring assistance completed. me1 13:55 IV discontinued, intact, bleeding controlled, No redness/swelling at site. Pressure aa5 dressing applied. Administered Medications: 12:51 Drug: Famotidine IVP 20 mg IVP once; dilute with 10 mL 0.9% NaCl; give over 2 minutes me1 Route: IVP; Site: right antecubital; 12:51 Drug: NS 0.9% IV 1000 ml IV at 1 bolus Per protocol; to be given as a bolus over 60 me1 minutes Route: IV; Rate: 1 bolus; Site: right antecubital; 12:52 Drug: Ondansetron IVP 4 mg IVP once; over 2 minutes Route: IVP; Site: right antecubital;me1 Medication: 12:52 VIS not applicable for this client. me1 Outcome: 13:40 Discharge ordered by . 7 13:55 Discharged to home ambulatory, with significant other, aa5 13:55 Condition: stable 13:55 Discharge instructions given to patient, Instructed on discharge instructions, follow up and referral plans. medication usage, Demonstrated understanding of instructions, follow-up care, medications, Prescriptions given X 1, 14:02 Patient left the ED. hb Signatures: Anabelle Robles RN RN aa5 Yoanna Alejandra, RN RN hb Maria Isabel, Rupa, AUTISM TUTOR AUTISM TUTOR jh7 Mansi Salter, RN RN cm10 Anette Olvera, RN RN me1 Cristóbal, Rhona mg5
[2024-04-13 16:54] VITALS: BP 120/71; TEMP 98.2; O2SAT 99
== END 2024-04-13 14:02 | disposition home or self-care (01) ==
LOC: ER 11:29
DX: O99.613 Diseases of the digestive system complicating pregnancy, third trimester (principal); A08.4 Viral intestinal infection, unspecified; Z3A.28 28 weeks gestation of pregnancy
CPT/HCPCS: 85025; 81001; 36415; 83690; 80053; 87804 ×2; 96375; 96374; 99284; J2405; J7030